=== PATIENT | female | born 1945 | race Caucasian/White ===

== ENCOUNTER 2017-07-23 13:00 | Outpatient (CLI) | payer MEDICARE, BC | END 2017-07-23 13:01 | disposition home or self-care (01) | LOC: BICMAMMO 13:00 | PROVIDERS: ATTEND Obstetrics & Gynecology | DX: Z12.31 Encounter for screening mammogram for malignant neoplasm of breast (principal) | CPT/HCPCS: 77063 ==

== ENCOUNTER 2018-03-13 16:02 | Observation (INO) | payer MEDICARE, BC ==
[2018-03-13 17:08] VITALS: BMI 29.9
[2018-03-13 17:51] LABS: #Basophils 0.1 thou/uL (0.0-0.2); #Eosinphils 0.1 thou/uL (0.0-0.7); #Lymphocytes 2.8 thou/uL (1.20-3.40); #Monocytes 0.7 thou/uL (0.11-0.59); %Basophils 0.9 % (0.0-1.0); %Eosinophils 0.8 % (0.0-10.0); %Lymphocytes 32.5 % (21.0-51.0); %Monocytes 8.5 % (0.0-10.0); %Neutrophils 57.3 % (42.0-75.0); Hemoglobin 14.6 g/dL (12.0-16.0); Mean Corpuscular HGB CONC 34.2 g/dL (32.0-36.0); Mean Corpuscular Hemoglobin 31.5 pg (27.0-31.0); Mean Corpuscular Volume 92.1 fL (78.0-98.0); Mean Platelet Volume 6.1 fL (7.4-10.4); Platelet Count 347 thou/uL (130-400); RBC Distribution Width 11.8 % (11.5-14.5); Red Blood Cell (RBC) Count 4.65 mill/uL (4.20-5.40); White Blood Cell (WBC) Count 8.7 thou/uL (4.8-10.8)
[2018-03-13 18:13] LABS: Anion Gap 15 mmol/L (10-20); BUN (Urea Nitrogen) 10 mg/dL (9.8-20.1); Calc. Creatinine Clearance 90 mL/min (70-130); Calcium 9.7 mg/dL (7.8-10.44); Carbon Dioxide 23 mmol/L (23-31); Chloride 103 mmol/L (98-107); Estimated GFR-MDRD Greater than 90; Glucose 85 mg/dL (83-110); Potassium 3.6 mmol/L (3.5-5.1); Sodium 137 mmol/L (136-145)
[2018-03-13] MEDS ORDERED: Aspirin 325 MG TAB PO PRN (18:40)
[2018-03-13] MEDS ORDERED: Ibuprofen 200 MG TAB PO PRN (18:41)
[2018-03-13] MEDS ORDERED: Loratadine 10 MG TAB PO PRN (18:42)
[2018-03-13 18:44] LABS: Free T4 (Free Thyroxine) 0.99 ng/dL (0.70-1.48); Thyroid Stimulating Hormone 0.3676 uIU/mL (0.35-4.94)
[2018-03-13] MEDS ORDERED: Clindamycin/D5W 900 MG in Premix Bag 1 BAG IVPB SCH (22:45)
--- NOTE | 2018-03-14 00:12 | CON ---
DATE OF CONSULTATION: 03/13/2018 ELECTROPHYSIOLOGY CONSULTATION DATE OF REFERRAL: 03/13/2018 REFERRING PHYSICIAN: Terence Doan MD REASON FOR CONSULTATION: Atrial fibrillation as well as sick sinus syndrome. HISTORY OF PRESENT ILLNESS: Ms. Oreilly is a very pleasant 72-year-old female with a history of hype rtension and paroxysmal atrial fibrillation, who is a patient of Dr. Doan. She has been wearing a nurse monitoring for the past few days and was found to have a recent significant pause up to 7 sec onds in duration with associated presyncope. She has not had any true syncopal episodes and she is o n low-dose beta bahman therapy for her paroxysmal atrial fibrillation. She is anticoagulated with X arelto 20 mg daily for an elevated CHADS-VASc score of 3. She is currently admitted under observatio n on the telemetry unit. She is mildly symptomatic of her atrial arrhythmia. She has had occasional palpitations and heart racing, but generally is asymptomatic. She has never been evaluated by EP, laisha donnelly on powerful antiarrhythmic therapy, and has no history of ablation. REVIEW OF SYSTEMS: Negative for heart racing, chest pain, pressure, syncope or stroke-like symptoms. Positive for occasional palpitations and near syncope/dizziness. PAST MEDICAL HISTORY: 1. Paroxysmal atrial fibrillation. 2. Near-syncope. 3. Hypertension. 4. Elevated CHADS-VASc score of 3 on the basis of female gender, advancing age, and hypertension (wi ll be 2 on her birthday in 4 days). Currently on Xarelto 20 mg daily for stroke prophylaxis. 5. Breast cancer. 6. Aortic insufficiency. 7. Hypothyroidism. ALLERGIES: PENICILLIN. HOME MEDICATIONS: Vitamin B daily, fish oil daily, vitamin D daily, Tylenol 325 mg as needed for chris n, Synthroid 100 mcg daily, multivitamin daily, Toprol-XL 50 mg daily, Xarelto 20 mg q.p.m., Advil 20 0 mg as needed, Benadryl 25 mg as needed, magnesium daily. FAMILY HISTORY: Negative for early onset coronary artery disease and sudden cardiac . SOCIAL HISTORY: She is . No children. No alcohol, no tobacco, and no illicit drug use. Mod erate caffeine and soda intake, and lives a sedentary life. PHYSICAL EXAMINATION: VITAL SIGNS: Most recent vital signs, temperature 97.9 degrees, pulse 73, blood pressure is 192/77, respirations 20, oxygen is 97% on room air. GENERAL: This is a well-appearing, well-groomed, and well-developed female. She is modera tely obese. She is in no apparent distress. She is alert and oriented. Her speech is clear. Affec t is appropriate. HEENT: She is normocephalic, atraumatic. Her sclerae are anicteric and EOMs are intact. Her oral m ucosa is moist and pink with adequate dentition. NECK: Supple without jugular venous distention. Her thyroid is nonpalpable. LUNGS: Clear to auscultation bilaterally without wheezes, crackles, or rhonchi. Respirations are ev en and unlabored with good bilateral excursion. HEART: Heart rate is regularly regular without murmur, rub, or gallop. PMI is nondisplaced. EXTREMITIES: Warm and dry to touch without clubbing, cyanosis, or edema. ABDOMEN: Obese, soft, and nontender without palpable masses; and hepatojugular reflux is negative. NEUROLOGIC: Cranial nerves II-XII are grossly intact and nonfocal. Her gait was not assessed. DATABASE: Review of cardiac tracings: monitor technician that was sent with the patient was evaluated and reveals coarse atrial fibrillation largely rate controlled with pauses up to 8 seconds in duratio n. IMPRESSION: 1. Sick sinus syndrome, symptomatic bradycardia with correlation of symptoms and near syncopal episo jaxon, 8-second pause documented on nurse monitoring. 2. Paroxysmal atrial fibrillation, on low-dose beta bahman therapy. 3. Hypertension. 4. CHADS-VASc score of 3, on Xarelto. RECOMMENDATIONS: Discussion was had with Ms. Oreilly and her family regarding treatment of sick sinu s syndrome with a pacemaker. She has correlation of symptoms with her pauses and bradycardia, and pa uses are substantial and quite concerning given they are up to 8 seconds in duration. Risks, benefit s, and alternatives of pacemaker were discussed. The risks include pain, swelling, bruising, infecti on, damage to the lung, damage to the heart, and possible need for a temporary chest tube placement. The patient voices understanding and agrees to move forward with dual-chamber pacemaker implantation in the near future. Regarding her atrial fibrillation, at this point, rate control is an appropriat e goal for now. Once her pacemaker has matured and she has recovered from her procedure, we will con product support representative antiarrhythmic therapy and possibly PVI for further arrhythmia management. All questions were answered and the patient voices understanding. We will hold Xarelto tonight and likely resume tomorr ow night after pacemaker has been placed as long as no significant bleeding or complications arise. Thank you for allowing us to participate in the care of this patient.
[2018-03-14] MEDS: Levothyroxine Sodium 100 MCG TAB PO SCH (06:15)
[2018-03-14] MEDS ORDERED: Lidocaine 1% (PF) 30 ML VIAL ONE (08:03)
[2018-03-14] MEDS ORDERED: KRILL OIL PO SCH (09:00)
[2018-03-14] MEDS ORDERED: Midazolam HCl 2 mg/2 ml Vial ONE (09:19)
[2018-03-14] MEDS ORDERED: HYDROcodone/Acetaminophen 5/325 mg Tablet PO PRN (10:10)
[2018-03-14] MEDS: Multivit, Therapeutic 1 TAB PO SCH (12:45)
[2018-03-14] MEDS: Cyanocobalamin (Vitamin B-12) 1,000 MCG TAB PO SCH (12:45)
--- NOTE | 2018-03-14 13:20 | RAD ---
UPRIGHT CHEST 1 VIEW: History A 72-year-old female for a post cardiac device placement evaluation. COMPARISON: 10/01/15. FINDINGS: Left ICD in place. No evidence for pneumothorax or pleural effusion. Atherosclerosis of the aorta w ith ectasia. Surgical clips in the right axilla. No confluent pneumonia, overt edema, or other acut e process. IMPRESSION: Left implantable cardioverter defibrillator placement without pneumothorax or pleural effusion. Mini mal cardiomegaly. Atherosclerotic ectatic changes of the aorta. POS: MONET
--- NOTE | 2018-03-14 14:47 | PRG ---
DATE OF SERVICE: 03/14/2018 ELECTROPHYSIOLOGY NOTE SUBJECTIVE: Ms. Oreilly seems to be doing well after her pacemaker implantation. OBJECTIVE: VITAL SIGNS: Blood pressure 136/65, heart rate 72, respirations 20, temperature 97.1 degrees Fahrenh eit. GENERAL: She is alert and oriented woman, in no apparent distress. NECK: Supple. Jugular veins not distended. CHEST: Coarse, no crackles. CARDIOVASCULAR: Heart sounds are regular to rate and rhythm. No murmur or gallop. Left precordial pacemaker insertion site is without reaction. ABDOMEN: Benign. Bowel sounds positive. LOWER EXTREMITIES: Without edema, clubbing or cyanosis. DATABASE: The chest x-ray shows no pneumothorax, adequately seated dual chamber pacemaker is seen. The parents were in sinus rhythm. ASSESSMENT AND PLAN: Ms. Oreilly is a pleasant 72-year-old woman with history of atrial arrhythmias. She also has significant pause for 7 seconds. She underwent a dual-chamber pacemaker implantation today by Dr. Braswell and she tolerated the procedure well, so far no issues noted and she is likely to r esume her Xarelto soon. At this point, I would consider increasing her metoprolol. If that fails to keep her out of symptomatic atrial fibrillation, consideration adding Multaq versus sotalol could be made. Also, pulmonary venous isolation is the possibility in the future after a pacemaker has matur ed. I will see her as an outpatient.
[2018-03-15] MEDS: Levothyroxine Sodium 100 MCG TAB PO SCH (04:19)
[2018-03-15] MEDS: Multivit, Therapeutic 1 TAB PO SCH (07:50)
[2018-03-15] MEDS: Cyanocobalamin (Vitamin B-12) 1,000 MCG TAB PO SCH (07:50)
[2018-03-15 08:17] VITALS: BP 152/72; TEMP 96.8
--- NOTE | 2018-03-15 08:36 | CCL ---
DATE OF PROCEDURE: 03/14/2018 INDICATION FOR PROCEDURE: A 72-year-old female with sick sinus syndrome with tachybrady. She was advised to undergo dual-chamb er pacemaker insertion. This was performed today without difficulties or complications. The full dictated note can be found in chart. She was implanted with an Azura dual chamber pacemaker from [employer]. This is an MRI compatible dev ice. There were no complications encountered. She was implanted with two screw in leads active fixa tion both in the atrium and the ventricle. The pacemaker set with the upper rate of 120 and the lowe r rate was set at 60.
--- NOTE | 2018-03-15 15:37 | DIS ---
DATE OF ADMISSION: 03/13/2018 DATE OF DISCHARGE: 03/15/2018 DISCHARGE DIAGNOSIS: Sick sinus syndrome. PROCEDURE: Pacemaker. HOSPITAL COURSE: Ms. Oreilly was admitted from the office due to significant pauses and tachycardia present. She underwent successful pacemaker implantation on 03/14/2018. She was on anticoagulation therapy. We decided to keep her one more night due to her stay at home by herself and reinstituting anticoagulation treatment. She did well during her hospitalization. No pneumothorax is present. DISCHARGE MEDICATIONS: Aspirin 81 q.a.m., metoprolol 50 mg b.i.d., multivitamin, Krill oil, loratadi ne, levothyroxine as previously prescribed, Xarelto 20 mg daily. CONDITION ON DISCHARGE: Stable. FOLLOWUP: With Dr. Francine Stone in 1-2 weeks.
== END 2018-03-15 10:32 | disposition home or self-care (01) ==
LOC: 2SW 16:02
PROVIDERS: ADMIT Internal Medicine Cardiovascular Disease; ATTEND Internal Medicine Cardiovascular Disease
PROC: 0JH608Z Insertion of Defibrillator Generator into Chest Subcutaneous Tissue and Fascia, Open Approach (ICD-10-PCS; principal; 2018-03-14)
PROC: 02H63KZ Insertion of Defibrillator Lead into Right Atrium, Percutaneous Approach (ICD-10-PCS; 2018-03-14)
PROC: 02HK3KZ Insertion of Defibrillator Lead into Right Ventricle, Percutaneous Approach (ICD-10-PCS; 2018-03-14)
DX: I49.5 Sick sinus syndrome (principal); I48.0 Paroxysmal atrial fibrillation; I10 Essential (primary) hypertension; E03.9 Hypothyroidism, unspecified; Z88.0 Allergy status to penicillin; Z79.02 Long term (current) use of antithrombotics/antiplatelets; Z79.899 Other long term (current) drug therapy
CPT/HCPCS: 33249; 71045; 80048; 84439; 84443; 85025; 93005; 93798; C1785; C1898 ×2; G0378; G0379; 36415; 93010; 99152; 99153; A4216; J1644; J1956; J2001; J2250; J3370; J3490

== ENCOUNTER 2019-03-19 10:46 | Outpatient (CLI) | payer MEDICARE, BC ==
[~2019-03-19 10:46] MED LIST: Iopamidol 370 76% 100 ML VIAL ONE
--- NOTE | 2019-03-19 14:31 | CT ---
CT ABDOMEN AND PELVIS WITH AND WITHOUT IV CONTRAST: HISTORY: Gross hematuria COMPARISON: None FINDINGS: The lung bases are unremarkable. The liver, spleen, adrenal glands are normal. No calcific gallstones are seen. There is a 5 mm low-density mass in the anterior body of the pancreas and a 8mm low-density mass in the distal body of the pancreas posteriorly. A 9 mm low-density lesion is seen in the posterior aspect of the neck of the pancreas. There is a left hip arthroplasties resulting in artifact which reduces the sensitivity of the exam an d evaluation of the pelvic structures. No calculi are seen in the kidneys right ureter and visualized portions of the left ureter and urinary bladder. No hydroureteronephrosis is seen. Postcon trast images demonstrate no evidence of renal mass. There is normal contrast excretion into the ureters and urinary bladder. No free air, free fluid or lymphadenopathy seen in the abdomen or pelvis. There are vascular calcific ations without evidence of aneurysmal dilatation of the abdominal aorta. The small bowel loops are not abnormally dilated. A normal-appearing appendix is present. There is colonic diverticulosis witho ut definite diverticulitis. Degenerative changes are present in the spine. There is a fat-containing umbilical hernia. IMPRESSION: 1. No CT evidence of urinary tract calculi/obstruction or renal mass. 2. Probable small pancreatic cystic masses. Evaluation with the endoscopic ultrasound would be helpfu l. 3. Colonic diverticulosis.
== END 2019-03-19 10:47 | disposition home or self-care (01) ==
LOC: BICCT 10:46
PROVIDERS: ATTEND Urology
DX: R31.0 Gross hematuria (principal); K57.30 Diverticulosis of large intestine without perforation or abscess without bleeding
CPT/HCPCS: 74178; 82565; Q9967

== ENCOUNTER 2019-07-06 09:40 | Inpatient (IN) | payer MEDICARE, BC ==
[~2019-07-06 09:40] MED LIST changes: -Iopamidol 370 76% 100 ML VIAL ONE; +Lidocaine 1% PF 5 ML VIAL ONE; +PROPOFOL 200 MG/20 ML VIAL ONE
[2019-07-06 11:03] LABS: ALT (SGPT) 15 U/L (8-55); AST (SGOT) 18 U/L (5-34); Albumin 3.5 g/dL (3.4-4.8); Alkaline Phosphatase 33 U/L (40-110); Anion Gap 13 mmol/L (10-20); BUN (Urea Nitrogen) 31 mg/dL (9.8-20.1); Bilirubin, Total 0.3 mg/dL (0.2-1.2); Calc. Creatinine Clearance 0 mL/min (70-130); Carbon Dioxide 20 mmol/L (23-31); Chloride 104 mmol/L (98-107); Estimated GFR-MDRD 79; Globulin 1.6 g/dL (2.4-3.5); Glucose 102 mg/dL (83-110); Potassium 3.8 mmol/L (3.5-5.1); Protein, Total 5.1 g/dL (6.0-8.3); Sodium 133 mmol/L (136-145)
[2019-07-06 11:23] LABS: Band 1 % (5-11); Eosinophils 1 % (0-10); Hemoglobin 4.9 g/dL (12.0-16.0); Hypochromia SLIGHT = 6-15 cells (100X) (0-5/hpf); Lymphocytes 27 % (21-51); MDiff Complete? YES; Mean Corpuscular HGB CONC 36.1 g/dL (32.0-36.0); Mean Corpuscular Hemoglobin 32.7 pg (27.0-31.0); Mean Corpuscular Volume 90.7 fL (78.0-98.0); Mean Platelet Volume 6.7 fL (7.4-10.4); Microcytosis MODERATE=15-30 cells (100X) (0-5/hpf); Monocytes 4 % (0-10); Neutrophil 67 % (42-75); Nucleated RBC 1 % (0); Ovalocytes SLIGHT = 2-5 cells (100X) (0-1/hpf); Platelet Count 291 thou/uL (130-400); Platelet Morphology Comment Appears Adequate; Polychromasia MODERATE = 3-4 cells (100X) (0-2/hpf); RBC Distribution Width 13.3 % (11.5-14.5); Red Blood Cell (RBC) Count 1.51 mill/uL (4.20-5.40); White Blood Cell (WBC) Count 11.9 thou/uL (4.8-10.8)
[2019-07-06] MEDS ORDERED: Pantoprazole 40 MG VIAL ONE (11:31)
[2019-07-06 11:42] LABS: INR-International Normal Ratio 2.1; PTT 31.4 SEC (22.9-36.1); Prothrombin Time 23.4 SEC (12.0-14.7)
[2019-07-06] MEDS ORDERED: Pantoprazole 80 MG, Admixture Fee 1 EACH in Sodium Chloride 0.9% 100 ML IVPB SCH (11:45)
[2019-07-06] MEDS ORDERED: HUM PROTHROMBIN CPLX IV SCH (12:15)
[2019-07-06] MEDS ORDERED: ADMIXTURE FEE IV SCH (12:15)
[2019-07-06] MEDS ORDERED: Phytonadione 10 MG/ML AMP SLOW IVP SCH (12:15)
[2019-07-06] MEDS ORDERED: [UNRECOGNIZED DRUG - OTHER] IV SCH (12:15)
[2019-07-06 13:03] LABS: Bilirubin Negative (Negative); Blood, Urine Negative (Negative); Clarity Clear (Clear); Glucose, Urine (Dipstick) Normal (Negative); Leukocyte Negative Leu/uL (Negative); Nitrite Negative (Negative); Protein, Urine (Dipstick) Negative (Neg-Trace); Urobilinogen Normal mg/dL (Less than 2)
--- NOTE | 2019-07-06 14:56 | HP ---
PRIMARY CARE PHYSICIAN: Dr. Romero. REASON FOR ADMISSION: Dizziness, weakness, and GI bleed. HISTORY OF PRESENT ILLNESS: A 74-year-old female with history of atrial fibrillation, hypothyroidism, chronic pain, hypertension, carcinoma of breast, and sick sinus syndrome, came to the hospital with weakness and dizziness. The patient started having vague symptoms 2 to 3 days back and it was getting worse. She has also started noticing dark stools and she was brought to the hospital. She was also looking pale and feeling nauseated. No vomiting. No diarrhea. No chest pain or palpitation. No fever or chills. No skin rash. No sick contacts. In the ER, she was found to have hemoglobin of 4.9 and is getting transfused and she is planned to have EGD. PAST MEDICAL HISTORY: Positive for atrial fibrillation, hypothyroidism, degenerative joint disease, hypertension, low back pain, CA of breast, sick sinus syndrome. PAST SURGICAL HISTORY: Lumpectomy, carcinoma of breast, left hip surgery, pacemaker placement, cataract surgery. HOME MEDICATIONS: Include; 1. Aspirin 81 mg daily. 2. Vitamin D3, 2000 p.o. daily. 3. Vitamin B12. 4. Krill oil 350 p.o. daily. 5. Levothyroxine 100 mcg p.o. daily. 6. Loratadine. 7. Metoprolol 50 mg p.o. daily. 8. Xarelto 20 mg p.o. at bedtime. She also takes Multaq, she does not know the dose. ALLERGIES: PENICILLIN, , AND DARVOCET. CODE STATUS: Full. SURROGATE DECISION MAKER: Would be Mayra Cruz, who is her sister. She does not have a medical power of litigation attorney. SOCIAL HISTORY: No smoking, alcohol, or illicit drug abuse. FAMILY HISTORY: Positive for diabetes in mom, sister, and brother. REVIEW OF SYSTEMS: CONSTITUTIONAL: Negative for weight loss or gain, ability to conduct usual activities. SKIN: Negative for rash, itching. EYES: Negative for double vision, pain. ENT/MOUTH: Negative for nose bleeding, neck stiffness, pain, tenderness. CARDIOVASCULAR: Negative for palpitations, dyspnea on exertion, orthopnea. RESPIRATORY: Negative for shortness of breath, wheezing, cough, hemoptysis, fever or night sweats. GASTROINTESTINAL: Negative for poor appetite, abdominal pain, heartburn, nausea, vomiting, constipation, or diarrhea. GENITOURINARY: Negative for urgency, frequency, dysuria, nocturia. MUSCULOSKELETAL: Negative for pain, swelling. NEUROLOGIC/PSYCHIATRIC: Negative for anxiety, depression. ALLERGY/IMMUNOLOGIC: Negative for skin rash, bleeding tendency. PHYSICAL EXAMINATION: GENERAL: This is an obese female, in no apparent distress. The patient looks pale. VITAL SIGNS: Temperature 97.9, pulse 64, respiratory rate 17, blood pressure 113/40. HEENT: Atraumatic and normocephalic. Oral mucosa moist. NECK: Supple. CVS: S1 and S2 heard. Rate and rhythm are regular. RESPIRATORY: Clear. GASTROINTESTINAL: Abdomen is soft. MUSCULOSKELETAL: No tenderness. No edema. DERMATOLOGIC: No skin rash. NEUROLOGIC: Alert and awake. PSYCHIATRIC: Mood and affect normal. LABORATORY DATA: Hemoglobin 4.9, WBC 11.9, platelets 291. INR is 2.1. Potassium 3.8, BUN is , creatinine 0.7. UA is negative. ASSESSMENT AND PLAN: 1. Severe anemia secondary to GI bleed. Plan is to transfuse her and also use Kcentra to regularize coagulopathy. 2. GI bleed. We will consult GI and we will start on Protonix drip and we will transfuse and follow up with GI recommendation. 3. Coagulopathy. The patient was given Kcentra. We will hold aspirin and Xarelto until cleared by GI. 4. History of hypertension. We will monitor blood pressure. 5. History of atrial fibrillation. We will continue Multaq and metoprolol. We will monitor the heart rate. 6. History of hypothyroidism. Continue her home dose of medicines and monitor. 7. Sick sinus syndrome. We will monitor her heart rate. PLAN: 1. Plan is to admit her to inpatient admission and monitor in IMCU for now. Follow up with GI recommendation. Keep her n.p.o. Start on IV fluids and Protonix drip. The patient was already given Kcentra and 2 units of blood and will be taken to EGD pretty soon. Appreciate help from GI. 2. Code status is full. I had discussion with the patient and she is full code. 3. Surrogate decision maker will be her sister. No medical power of litigation attorney available. Her sister's name is Mayra Cruz. 4. Selected home medications. We will hold anticoagulants. 5. GI/DVT prophylaxis, on Protonix drip and SCDs. We will avoid heparin and anticoagulants due to GI bleed. 6. P.r.n. order set. 7. The patient will be admitted to the IM and will be monitored closely. Job ID: [id number]
--- NOTE | 2019-07-06 14:57 | CON ---
DATE OF CONSULTATION: 07/06/2019 REASON FOR CONSULTATION: Melena, profound anemia. CONSULTING PROVIDER: Dr. Vo. HISTORY OF PRESENT ILLNESS: The patient is a 74-year-old female with past medical history of atrial fibrillation, on chronic anticoagulation with Xarelto, breast cancer, status post treatment, hypothyroidism, acid reflux, hypertension, and obstructive sleep apnea, presenting with complaints of weakness and melena. She states that she was in her usual state of health until approximately 1 week ago when she began having these darker black colored stools, having approximately 2 to 4 solid to semi-solid bowel movements per day that were not easy to clean off. This continued throughout the course of the week and at the latter end of the week, she began to feel increasingly weak and was associated with increased skin pallor as well as dyspnea on exertion and dizziness with movement. With this worsening weakness this morning, it prompted her to seek healthcare assistance and called EMS who then transferred to [facility]. While in the hospital, she was noted to have a significant anemia when compared to her baseline and is currently in the process of being admitted for further evaluation of bleeding. She also endorses increased nausea without vomiting, eructation, subjective fevers, chills, and decreased appetite over the last week; however, she currently denies vomiting, hematemesis, hematochezia, dysphagia, odynophagia, or weight loss. REVIEW OF SYSTEMS: A 10-category review of systems was obtained with all responses negative except for the pertinent positives as listed in HPI. PAST MEDICAL HISTORY: As per HPI. PAST SURGICAL HISTORY: Partial mastectomy, broken femur repair, left hip replacement, and pacemaker insertion. FAMILY HISTORY: States that her sister was diagnosed with chronic liver disease/liver cancer. Otherwise, she denies any additional GI malignancies. OUTPATIENT MEDICATIONS: Include; 1. Metoprolol 25 mg b.i.d. 2. Aspirin 81 mg daily. 3. Multivitamin daily. 4. Vitamin B12 daily. 5. Vitamin D daily. 6. Synthroid 100 mcg daily. 7. Xarelto 20 mg daily. ALLERGIES: PENICILLIN AND PROPOXYPHENE NAPSYLATE. PHYSICAL EXAMINATION: VITAL SIGNS: Temperature 98.4, pulse 79, blood pressure 105/50, respiratory rate 17, saturating 98% on 2 L nasal cannula. GENERAL: The patient was lying in bed, in no acute distress. Alert and oriented x4. HEENT: Neck is supple. No JVD or scleral icterus noted. Normocephalic and atraumatic. CARDIOVASCULAR: Regular rate and rhythm with no discernible murmurs, gallops, or rubs. RESPIRATORY: Clear to auscultation bilaterally with no discernible wheezes or rales. ABDOMEN: Normoactive bowel sounds. Soft, nontender, nondistended. EXTREMITIES: No cyanosis, clubbing, or edema. LABORATORY DATA: CBC with a white blood cell count of 11.9, hemoglobin 4.9, hematocrit 13.7, platelets 291. Chemistry with a sodium of 133, potassium 3.8, chloride 104, CO2 of 20, BUN 31, creatinine 0.72, glucose 102. AST 18, ALT 15, alkaline phosphatase 33, total bilirubin 0.3. IMAGING DATA: No current GI imaging is available for review. ASSESSMENT AND PLAN: The patient is a 74-year-old female with past medical history of breast cancer, status post treatment, hypothyroidism, hypertension, gastroesophageal reflux disease, and atrial fibrillation, on chronic anticoagulation, presenting with melena consistent with an upper gastrointestinal bleed. Melena/upper GI bleeding: The patient is presenting with fairly acute onset of darker/black-colored stools that have been progressively worsening over the last week, having approximately 2 to 4 solid/semi-solid bowel movements per day. On admission to the ER, she was also noted to have a profound anemia with an elevated BUN-creatinine ratio, again consistent with an upper GI bleed. At this time, she is on chronic anticoagulation with Xarelto for her atrial fibrillation, which could further exacerbate any sort of GI bleeding. Differential at this time could include esophagitis, gastritis, duodenitis, peptic ulcer disease, arteriovenous malformation, Dieulafoy lesion and/or GI neoplasm. RECOMMENDATIONS: 1. We would continue to trend her H and H and transfuse as necessary to maintain an H and H of 7/21. 2. Continue to monitor clinically for signs of active GI bleeding. 3. We will continue with PPI drip as you are doing in light of upper GI bleed. 4. We will continue n.p.o. status in preparation for procedure later today. 5. We will proceed with EGD for intraluminal evaluation later today once the patient has received blood product. We will continue to follow. Please call with any questions. Job ID: [id number]
[2019-07-06] MEDS ORDERED: Ondansetron PF 4 MG/2 ML Vial IVP PRN (16:11)
[2019-07-06] MEDS ORDERED: HYDROcodone/Acetaminophen 5/325 mg Tablet PO PRN (16:11)
[2019-07-06] MEDS ORDERED: Senokot S 8.6-50 MG TAB PO PRN (16:11)
[2019-07-06] MEDS ORDERED: Loperamide HCl 2 MG CAP PO PRN ×2 (16:11)
[2019-07-06] MEDS ORDERED: Guaifenesin DM 100-10/5 ML UDCUP PO PRN (16:11)
[2019-07-06] MEDS ORDERED: Pantoprazole 80 MG in Sodium Chloride 0.9% 100 ML IVP SCH (16:11)
[2019-07-06] MEDS ORDERED: Ondansetron HCl/PF 4 MG/2 ML Vial IVP PRN (16:14)
[2019-07-06] MEDS ORDERED: Promethazine HCl 25 MG/ML VIAL IM PRN (16:14)
[2019-07-06] MEDS ORDERED: Promethazine HCl 25 MG/ML VIAL SLOW IVP PRN (16:14)
--- NOTE | 2019-07-06 16:39 | OP ---
DATE OF PROCEDURE: 07/06/2019 PROCEDURE PERFORMED: Esophagogastroduodenoscopy (diagnostic). INDICATION FOR PROCEDURE: Anemia, melena with probable upper GI bleed. DESCRIPTION OF PROCEDURE: After the risks and benefits of the procedure were explained to the patient including risks of bleeding, infection, perforation, reactions to anesthesia, aspiration and/or pain, informed consent was obtained. The patient was then taken to the endoscopy suite, and placed in the left lateral decubitus position, followed by administration of propofol via Anesthesia support. Once adequate sedation was achieved, the standard gastroscope was introduced into the mouth with intubation of the esophagus, stomach, and the proximal small intestines with the findings listed below. The patient tolerated the procedure well with no immediate perioperative complications. Upon conclusion of the procedure, all equipment was removed from the patient and she was transferred to PACU in satisfactory condition. FINDINGS: Esophagus: Normal-appearing mucosa was seen in the proximal, mid, and distal esophagus. There were no evidence of erosions, ulcerations, mass, lesions, or active/recent bleeding. Stomach: Normal-appearing mucosa was seen in the gastric cardia, fundus, body, greater curvature, antrum, and incisura. There were no evidence of erosions, ulcerations, mass, lesions, or active/recent bleeding. Duodenum: Normal-appearing mucosa was seen within the duodenal bulb. A large duodenal diverticulum was seen within the duodenal sweep, but upon careful inspection of the duodenal diverticulum, there was no evidence of erosions, ulcerations, or bleeding within the lesion. Otherwise, normal-appearing mucosa was seen within the diverticulum and within the second portion of the duodenum. There were no evidence of erosions, ulcerations, mass, lesions, or active/recent bleeding. IMPRESSION: 1. Large duodenal diverticulum with normal mucosa within the diverticular sac. 2. Otherwise, normal upper endoscopy. 3. No etiology for the patient's anemia was seen during this examination. RECOMMENDATIONS: 1. We would continue to trend the patient's H and H and transfuse as necessary to maintain an H and H of 7/21. 2. Continue to monitor clinically for signs of active GI bleeding. 3. We will transfer the patient to an intermediate care bed for further monitoring. 4. We would avoid any anticoagulation and/or NSAIDs. 5. We will prep the patient for colonoscopy tomorrow for intraluminal evaluation of the colon. 6. If the colonoscopy is negative, I would then consider a tagged red cell scan for further localization of the bleeding. 7. Given lack of findings on the upper endoscopy, pantoprazole drip is not necessarily indicated and could be transferred to pantoprazole 40 mg IV daily. We will continue to follow. Please call with any questions. Job ID: [id number]
[2019-07-06 17:18] VITALS: BMI 30.5
[2019-07-06 18:38] LABS: Hemoglobin 7.6 g/dL (12.0-16.0)
[2019-07-06] MEDS: Sodium Chloride 0.9% 1,000 ML IV SCH (22:00)
[2019-07-06] MEDS ORDERED: GoLYTELY 4,000 ml Bottle PO SCH (22:00)
[2019-07-07 06:03] LABS: Hemoglobin 6.9 g/dL (12.0-16.0)
[2019-07-07 06:04] LABS: #Basophils 0.1 thou/uL (0.0-0.2); #Eosinphils 0.1 thou/uL (0.0-0.7); #Lymphocytes 2.5 thou/uL (1.20-3.40); #Monocytes 1.3 thou/uL (0.11-0.59); #Neutrophils 8.1 thou/uL (1.40-6.50); %Basophils 0.5 % (0.0-1.0); %Eosinophils 0.7 % (0.0-10.0); %Lymphocytes 20.5 % (21.0-51.0); %Monocytes 11.2 % (0.0-10.0); Mean Corpuscular HGB CONC 34.5 g/dL (32.0-36.0); Mean Corpuscular Hemoglobin 28.7 pg (27.0-31.0); Mean Corpuscular Volume 83.2 fL (78.0-98.0); Mean Platelet Volume 7.9 fL (7.4-10.4); Platelet Count 235 thou/uL (130-400); RBC Distribution Width 24.3 % (11.5-14.5)
[2019-07-07 06:29] LABS: ALT (SGPT) 11 U/L (8-55); AST (SGOT) 20 U/L (5-34); Albumin 3.1 g/dL (3.4-4.8); Alkaline Phosphatase 29 U/L (40-110); Anion Gap 10 mmol/L (10-20); BUN (Urea Nitrogen) 19 mg/dL (9.8-20.1); Bilirubin, Total 0.5 mg/dL (0.2-1.2); Calc. Creatinine Clearance 88 mL/min (70-130); Calcium 7.2 mg/dL (7.8-10.44); Carbon Dioxide 22 mmol/L (23-31); Chloride 108 mmol/L (98-107); Estimated GFR-MDRD Greater than 90; Globulin 1.4 g/dL (2.4-3.5); Glucose 98 mg/dL (83-110); Potassium 3.6 mmol/L (3.5-5.1); Protein, Total 4.5 g/dL (6.0-8.3); Sodium 136 mmol/L (136-145)
[2019-07-07] MEDS ORDERED: FLU VACC TS2019-20(65YR UP)/PF 180 MCG/0.5 ML SYRINGE IM ONE (09:00)
[2019-07-07] MEDS ORDERED: PROPOFOL 200 MG/20 ML VIAL ONE (09:37)
--- NOTE | 2019-07-07 13:22 | PDOC.HOSPP ---
- Subjective Encounter Date: 07/07/19 Encounter Time: 11:00 Subjective: finished most of her prep for colonoscopy still has some jhonatan bleeding per rectum no abd pain or nausea - Objective Vital Signs & Weight: Vital Signs (12 hours) Temp Pulse Ox 07/07/19 07:33 99 07/07/19 07:26 97.4 F L 07/07/19 04:00 97.8 F Weight Weight 161 lb 13.109 oz Most Recent Monitor Data Heart Rate from ECG 75 NIBP 147/54 NIBP BP-Mean 85 Respiration from ECG 16 SpO2 100 Result Diagrams: 07/07/19 05:11 07/07/19 05:11 Hospitalist ROS - Medication Medications: Active Medications Generic Name Dose Route Start Last Admin Trade Name Freq PRN Reason Stop Dose Admin Sodium Chloride 1,000 mls @ 100 mls/hr 07/06/19 16:11 07/06/19 22:00 Normal Saline 0.9% IV 1,000 mls .Q10H [place] Administration - Exam General Appearance: awake alert Eye: PERRL, anicteric sclera ENT: no oropharyngeal lesions, moist mucosa Neck: supple, no JVD Heart: no murmur, no gallops Respiratory: no wheezes, no rales Gastrointestinal: soft, non-tender, non-distended, normal bowel sounds Extremities: no cyanosis, no edema Neurological: cranial nerve grossly intact, no focal deficits Psychiatric: normal affect, A&O x 3 Hosp A/P (1) GI bleed Code(s): K92.2 - GASTROINTESTINAL HEMORRHAGE, UNSPECIFIED Status: Acute (2) Acute blood loss anemia Code(s): D62 - ACUTE POSTHEMORRHAGIC ANEMIA Status: Acute (3) Sick sinus syndrome Code(s): I49.5 - SICK SINUS SYNDROME Status: Chronic (4) HLD (hyperlipidemia) Code(s): E78.5 - HYPERLIPIDEMIA, UNSPECIFIED Status: Chronic (5) HTN (hypertension) Code(s): I10 - ESSENTIAL (PRIMARY) HYPERTENSION Status: Chronic Qualifiers: Hypertension type: essential hypertension Qualified Code(s): I10 - Essential (primary) hypertension (6) Hypothyroidism Code(s): E03.9 - HYPOTHYROIDISM, UNSPECIFIED Status: Chronic Qualifiers: Hypothyroidism type: unspecified Qualified Code(s): E03.9 - Hypothyroidism , unspecified (7) Obesity (BMI 30.0-34.9) Code(s): E66.9 - OBESITY, UNSPECIFIED Status: Chronic (8) Paroxysmal a-fib Code(s): I48.0 - PAROXYSMAL ATRIAL FIBRILLATION Status: Chronic - Plan change protonix drip to iv/po for colonoscopy today egd did not show active bleeding site/etiology continue toprol xl, synthroid, gentle iv hydration to ambulate as tolerated H/H 02/05, transfuse 2 u prbc will need central line, her right EJ is infiltrated.
[2019-07-07] MEDS: Sodium Chloride 0.9% 1,000 ML IV SCH (14:32)
[2019-07-07] MEDS: Levothyroxine Sodium 100 MCG TAB PO SCH (14:32)
--- NOTE | 2019-07-07 16:28 | OP ---
DATE OF PROCEDURE: 07/07/2019 PROCEDURE PERFORMED: Colonoscopy (diagnostic). INDICATIONS FOR PROCEDURE: Symptomatic anemia, melena, hematochezia. DESCRIPTION OF PROCEDURE: After the risks and benefits of the procedure were explained to the patient including risks of bleeding, infection, perforation, reactions to anesthesia, aspiration and/or pain, informed consent was obtained. The patient was then taken to the endoscopy suite, where she was placed in the left lateral decubitus position, followed by introduction of propofol via Anesthesia support. Once adequate sedation was achieved, a digital rectal examination was performed followed by introduction of the standard colonoscope, which was then advanced to the terminal ileum with some difficulty, requiring the placement of manual abdominal pressure to facilitate passage of the scope. Initially, the quality of the prep was poor with a large amount of retained black stool seen throughout the entire colon, but with aggressive irrigation and suctioning, I was able to achieve a fair to good prep. The patient tolerated the procedure well with no immediate perioperative complications. Upon conclusion of the procedure, the patient was transferred to PACU in satisfactory condition. FINDINGS: Digital rectal exam: Normal-appearing mucosa was seen on external examination. Colon findings: Normal-appearing mucosa was seen within the terminal ileum with a very little old/black blood seen within the terminal ileum itself. However, a large amount of retained black or black/red colored stool was seen throughout the entire colon and limited visualization significantly initially; however, with aggressive irrigation and suctioning, adequate views were able to be achieved for the evaluation of possible GI bleeding (inadequate for screening purposes). Normal-appearing mucosa was seen at the ileocecal valve and appendiceal orifice. Normal-appearing mucosa was also seen within the cecum, ascending colon, transverse colon, and descending colon. Within the sigmoid colon, there was a moderate amount of scattered small and large diverticula. Meticulous washing of each diverticula was performed for possible diverticular bleeding, but there was no evidence of active or recent bleeding from any of these regions. Normal-appearing mucosa was then seen within the rectum with small internal hemorrhoids seen on rectal retroflexion. IMPRESSION: 1. Large amount of retained black/red stool seen throughout the entire colon, but not in the terminal ileum, making a colonic bleeding source more likely; however, the etiology of her bleed was not seen on examination today. 2. Moderate sigmoid diverticulosis. 3. Small internal hemorrhoids. RECOMMENDATIONS: 1. We would continue to trend her hemoglobin and hematocrit and transfuse as necessary to maintain a hemoglobin and hematocrit of 7/21. 2. Continue to monitor clinically for signs of active GI bleeding. 3. If the patient exhibits a continued drop in her hemoglobin and hematocrit or has clinical signs of GI bleeding, we would recommend a tagged red cell scan for further localization of the bleeding source. 4. We will continue to hold anticoagulation in light of recent GI bleed and overt obscure GI bleeding. 5. We will place the patient on a clear liquid diet for now. 6. We will transfer the patient from a PPI drip to 40 IV daily given the lack of an upper gastrointestinal bleeding source. We will continue to follow. Please call with any questions. Job ID: [id number]
[2019-07-08] MEDS: Sodium Chloride 0.9% 1,000 ML IV SCH ×3 (02:03→22:15)
[2019-07-08 05:19] LABS: #Eosinphils 0.3 thou/uL (0.0-0.7); #Lymphocytes 2.4 thou/uL (1.20-3.40); #Monocytes 1.3 thou/uL (0.11-0.59); #Neutrophils 6.6 thou/uL (1.40-6.50); %Basophils 0.3 % (0.0-1.0); %Eosinophils 2.8 % (0.0-10.0); %Lymphocytes 22.7 % (21.0-51.0); %Monocytes 12.2 % (0.0-10.0); Hemoglobin 8.9 g/dL (12.0-16.0); Mean Corpuscular HGB CONC 33.6 g/dL (32.0-36.0); Mean Corpuscular Hemoglobin 28.5 pg (27.0-31.0); Mean Corpuscular Volume 84.8 fL (78.0-98.0); Mean Platelet Volume 7.4 fL (7.4-10.4); Platelet Count 232 thou/uL (130-400); RBC Distribution Width 21.5 % (11.5-14.5); Red Blood Cell (RBC) Count 3.12 mill/uL (4.20-5.40); White Blood Cell (WBC) Count 10.6 thou/uL (4.8-10.8)
[2019-07-08 05:38] LABS: Anion Gap 10 mmol/L (10-20); BUN (Urea Nitrogen) 6 mg/dL (9.8-20.1); Calc. Creatinine Clearance 99 mL/min (70-130); Calcium 7.4 mg/dL (7.8-10.44); Carbon Dioxide 20 mmol/L (23-31); Chloride 113 mmol/L (98-107); Estimated GFR-MDRD Greater than 90; Glucose 90 mg/dL (83-110); Potassium 3.4 mmol/L (3.5-5.1); Sodium 140 mmol/L (136-145)
[2019-07-08] MEDS: Pantoprazole 40 MG VIAL IVP SCH (09:59)
[2019-07-08] MEDS: Levothyroxine Sodium 100 MCG TAB PO SCH (09:59)
--- NOTE | 2019-07-08 13:35 | PDOC.HOSPP ---
- Subjective Encounter Date: 07/08/19 Encounter Time: 11:45 Subjective: tolerating oral liq diet, no abd pain feels better no further rectal bleeding per patient - Objective Vital Signs & Weight: Vital Signs (12 hours) Temp Pulse Ox 07/08/19 08:00 99 07/08/19 06:57 98.6 F 07/08/19 03:33 98.7 F 07/08/19 02:00 98.4 F Weight Weight 173 lb 3 oz Most Recent Monitor Data Heart Rate from ECG 72 NIBP 156/63 NIBP BP-Mean 94 Respiration from ECG 19 SpO2 100 I&O: 07/07/19 07/08/19 07/09/19 06:59 06:59 06:59 Intake Total 3079 Output Total 3950 Balance -871 Result Diagrams: 07/08/19 05:01 07/08/19 05:01 Hospitalist ROS - Medication Medications: Active Medications Generic Name Dose Route Start Last Admin Trade Name Freq PRN Reason Stop Dose Admin Sodium Chloride 1,000 mls @ 100 mls/hr 07/06/19 16:11 07/08/19 07:29 Normal Saline 0.9% IV Not Given .Q10H [place] Levothyroxine Sodium 100 mcg 07/07/19 09:00 07/08/19 09:59 Synthroid PO 100 mcg DAILY [place] Administration Metoprolol Succinate 50 mg 07/07/19 09:00 07/08/19 09:59 Toprol Xl PO 50 mg DAILY [place] Administration Pantoprazole Sodium 40 mg 07/08/19 09:00 07/08/19 09:59 Protonix IVP 40 mg DAILY [place] Administration - Exam General Appearance: awake alert Eye: PERRL, anicteric sclera ENT: no oropharyngeal lesions, moist mucosa Neck: supple, no JVD Heart: RRR, no murmur Respiratory: no wheezes, no rales Gastrointestinal: soft, non-tender, non-distended, normal bowel sounds Extremities: no cyanosis, no edema Neurological: cranial nerve grossly intact, no focal deficits Psychiatric: normal affect, A&O x 3 Hosp A/P (1) GI bleed Code(s): K92.2 - GASTROINTESTINAL HEMORRHAGE, UNSPECIFIED Status: Acute (2) Acute blood loss anemia Code(s): D62 - ACUTE POSTHEMORRHAGIC ANEMIA Status: Acute (3) Sick sinus syndrome Code(s): I49.5 - SICK SINUS SYNDROME Status: Chronic (4) HLD (hyperlipidemia) Code(s): E78.5 - HYPERLIPIDEMIA, UNSPECIFIED Status: Chronic (5) HTN (hypertension) Code(s): I10 - ESSENTIAL (PRIMARY) HYPERTENSION Status: Chronic Qualifiers: Hypertension type: essential hypertension Qualified Code(s): I10 - Essential (primary) hypertension (6) Hypothyroidism Code(s): E03.9 - HYPOTHYROIDISM, UNSPECIFIED Status: Chronic Qualifiers: Hypothyroidism type: unspecified Qualified Code(s): E03.9 - Hypothyroidism , unspecified (7) Obesity (BMI 30.0-34.9) Code(s): E66.9 - OBESITY, UNSPECIFIED Status: Chronic (8) Paroxysmal a-fib Code(s): I48.0 - PAROXYSMAL ATRIAL FIBRILLATION Status: Chronic - Plan colonoscopy revealed likely bleeding source is colon with no active source found. egd did not show active bleeding site/etiology continue toprol xl, synthroid, gentle iv hydration, protonix iv to ambulate as tolerated has recieved a total of 4 u prbc's this admission, Hb is stable now around 8g may advance diet per GI adv tx to med floor, hemostable
--- NOTE | 2019-07-08 18:39 | PRG ---
DATE OF SERVICE: 07/08/2019 REASON FOR CONSULTATION: Melena, GI bleeding. SUBJECTIVE: The patient did well overnight with no acute events or problems. She did not have any bowel movements today nor any repeat episodes of melena. She was given 2 units of blood yesterday and has been feeling much better since the infusion of blood product. Otherwise, she denies any nausea, vomiting, fevers, chills, abdominal pain, hematemesis, melena, or hematochezia. OBJECTIVE: VITAL SIGNS: Temperature 98, pulse 68, blood pressure 166/66, respiratory rate 14, saturating 96% on room air. GENERAL: The patient is lying in bed, in no acute distress. Alert and oriented x4. CARDIOVASCULAR: Regular rate and rhythm. RESPIRATORY: Clear to auscultation bilaterally. ABDOMEN: Normoactive bowel sounds. Soft, nontender, nondistended. EXTREMITIES: No cyanosis, clubbing, or edema. LABORATORY DATA: CBC with a white blood cell count of 10.6, hemoglobin 8.9, hematocrit 26.5, platelets 232. Chemistry with a sodium of 140, potassium 3.4, chloride 113, CO2 of 20, BUN 6, creatinine 0.6, glucose 90. IMAGING DATA: The patient underwent colonoscopy on July 07, 2019, which showed a large amount of retained dark black/reddish colored blood seen throughout the entire colon. Aggressive irrigation and suctioning were employed with adequate visualization of the colonic mucosa achieved, but no etiology for the patient's bleeding was seen during that procedure. ASSESSMENT AND PLAN: The patient is a 74-year-old female with past medical history of breast cancer, status post treatment, hypothyroidism, hypertension, gastroesophageal reflux disease, and atrial fibrillation, on chronic anticoagulation, initially presenting with melena consistent with GI bleeding. Melena/GI bleeding. The patient initially presented with fairly acute onset of darker/black-colored stools with semi-solid consistency concerning for melena. On admission to the ER, she was noted to have a profound anemia as well as an elevated BUN to creatinine ratio concerning for an upper GI bleed. However, she underwent EGD on July 06, 2019, which showed a normal upper endoscopy and no etiology of bleeding seen at that time. She subsequently underwent colonoscopy on July 07, 2019, which showed a large amount of retained dark black/reddish tinged blood seen throughout the entire colon, but now within the terminal ileum. Despite aggressive irrigation and suctioning, a bleeding source was not seen during that examination. Since that time, she has not had any further bowel movements and has not had a decrease in her hemoglobin and hematocrit consistent with active GI bleeding. At this time, the most likely etiology for her bleed would have been of a colonic origin and I would favor a diverticular bleed given the amount of blood loss as well as the spontaneous resolution of bleeding with administration of GoLYTELY. RECOMMENDATIONS: 1. Would continue to trend her hemoglobin and hematocrit and transfuse as necessary to maintain hemoglobin and hematocrit of 7/21. 2. Continue to monitor clinically for signs of active GI bleeding. 3. Can continue pantoprazole 40 mg daily for more acid reflux purposes rather than prevention of upper GI bleed. 4. If the patient exhibits a decrease in her hemoglobin and hematocrit or signs of continued melena, I would recommend a tagged red cell scan for further localization of the bleed. 5. Would continue to hold anticoagulation for at least the next 48 hours in light of her prior significant bleed. 6. Would advance diet as tolerated. 7. Pain control per primary team. We will continue to follow. Please call with any questions. Job ID: [id number]
[2019-07-09] MEDS: Sodium Chloride 0.9% 1,000 ML IV SCH ×2 (03:49→09:34)
[2019-07-09 06:09] LABS: #Basophils 0.1 thou/uL (0.0-0.2); #Eosinphils 0.2 thou/uL (0.0-0.7); #Lymphocytes 2.2 thou/uL (1.20-3.40); %Basophils 0.6 % (0.0-1.0); %Eosinophils 2.8 % (0.0-10.0); %Lymphocytes 25.6 % (21.0-51.0); %Monocytes 12.2 % (0.0-10.0); %Neutrophils 58.7 % (42.0-75.0); Hemoglobin 9.1 g/dL (12.0-16.0); Mean Corpuscular HGB CONC 33.9 g/dL (32.0-36.0); Mean Corpuscular Hemoglobin 28.9 pg (27.0-31.0); Mean Corpuscular Volume 85.3 fL (78.0-98.0); Mean Platelet Volume 7.4 fL (7.4-10.4); Platelet Count 276 thou/uL (130-400); RBC Distribution Width 21.6 % (11.5-14.5); Red Blood Cell (RBC) Count 3.14 mill/uL (4.20-5.40); White Blood Cell (WBC) Count 8.4 thou/uL (4.8-10.8)
[2019-07-09 06:28] LABS: Anion Gap 10 mmol/L (10-20); BUN (Urea Nitrogen) 5 mg/dL (9.8-20.1); Calc. Creatinine Clearance 94 mL/min (70-130); Calcium 7.6 mg/dL (7.8-10.44); Carbon Dioxide 23 mmol/L (23-31); Chloride 111 mmol/L (98-107); Estimated GFR-MDRD Greater than 90; Glucose 95 mg/dL (83-110); Potassium 3.5 mmol/L (3.5-5.1); Sodium 140 mmol/L (136-145)
[2019-07-09] MEDS: Levothyroxine Sodium 100 MCG TAB PO SCH (09:17)
[2019-07-09] MEDS: Pantoprazole 40 MG VIAL IVP SCH (09:17)
--- NOTE | 2019-07-09 19:58 | PDOC.HOSPP ---
- Subjective Encounter Date: 07/09/19 Encounter Time: 10:54 Subjective: 74 y/o female with afib on chronic anticoagulation with xarelto amongst others admitted with worsening weakness and dizziness. Found to have severe anemia with Hb of 4.9. resuscitated with IVF and PRBC and later had EGD and colonoscopy but no active bleeding spot was noted. Moderate sigmoid diverticulosis with large blood in the colon without blood in the ileum noted suggestive of colonic bleeding. Clinicaly improved. No BM since after colonoscopy. - Objective Vital Signs & Weight: Vital Signs (12 hours) Temp Pulse Resp BP BP Pulse Ox 07/09/19 19:41 98.2 F 73 20 118/69 92 L 07/09/19 07:59 97.9 F 70 16 138/75 99 Weight Weight 173 lb 3 oz Most Recent Monitor Data Heart Rate from ECG 68 NIBP 166/66 NIBP BP-Mean 99 Respiration from ECG 14 SpO2 96 I&O: 07/08/19 07/09/19 07/10/19 06:59 06:59 06:59 Intake Total 3079 4200 Output Total 3950 6350 Balance -871 -2150 Result Diagrams: 07/09/19 05:36 07/09/19 05:36 Hospitalist ROS - Medication Medications: Active Medications Generic Name Dose Route Start Last Admin Trade Name Freq PRN Reason Stop Dose Admin Levothyroxine Sodium 100 mcg 07/07/19 09:00 07/09/19 09:17 Synthroid PO 100 mcg DAILY [place] Administration Metoprolol Succinate 50 mg 07/07/19 09:00 07/09/19 09:17 Toprol Xl PO 50 mg DAILY [place] Administration - Exam General Appearance: awake alert Eye: anicteric sclera ENT: normocephalic atraumatic Neck: supple, symmetric Heart: RRR, murmur present Respiratory: no wheezes, no rales, no ronchi, normal chest expansion Gastrointestinal: soft, non-tender, non-distended, normal bowel sounds Extremities: no cyanosis, no edema Neurological: cranial nerve grossly intact, no focal deficits Musculoskeletal: generalized weakness Psychiatric: A&O x 3 Hosp A/P (1) Acute blood loss anemia Code(s): D62 - ACUTE POSTHEMORRHAGIC ANEMIA Status: Acute (2) GI bleed Code(s): K92.2 - GASTROINTESTINAL HEMORRHAGE, UNSPECIFIED Status: Acute (3) S/P cardiac pacemaker procedure Status: Acute (4) SVT (supraventricular tachycardia) Code(s): I47.1 - SUPRAVENTRICULAR TACHYCARDIA Status: Acute (5) HLD (hyperlipidemia) Code(s): E78.5 - HYPERLIPIDEMIA, UNSPECIFIED Status: Chronic (6) HTN (hypertension) Code(s): I10 - ESSENTIAL (PRIMARY) HYPERTENSION Status: Chronic Qualifiers: Hypertension type: essential hypertension Qualified Code(s): I10 - Essential (primary) hypertension (7) Hypothyroidism Code(s): E03.9 - HYPOTHYROIDISM, UNSPECIFIED Status: Chronic Qualifiers: Hypothyroidism type: unspecified Qualified Code(s): E03.9 - Hypothyroidism , unspecified (8) Obesity (BMI 30.0-34.9) Code(s): E66.9 - OBESITY, UNSPECIFIED Status: Chronic (9) Paroxysmal a-fib Code(s): I48.0 - PAROXYSMAL ATRIAL FIBRILLATION Status: Chronic (10) Sick sinus syndrome Code(s): I49.5 - SICK SINUS SYNDROME Status: Chronic - Plan DC IV fluid and estrada catheter. increase activity. Advance diet Possible discharge tomorrow if H/H remained stable.
[2019-07-10 06:15] LABS: #Eosinphils 0.3 thou/uL (0.0-0.7); #Lymphocytes 1.6 thou/uL (1.20-3.40); #Monocytes 0.9 thou/uL (0.11-0.59); #Neutrophils 4.1 thou/uL (1.40-6.50); %Basophils 0.7 % (0.0-1.0); %Eosinophils 4.4 % (0.0-10.0); %Lymphocytes 22.6 % (21.0-51.0); %Monocytes 12.6 % (0.0-10.0); %Neutrophils 59.7 % (42.0-75.0); Mean Corpuscular HGB CONC 33.9 g/dL (32.0-36.0); Mean Corpuscular Hemoglobin 28.9 pg (27.0-31.0); Mean Corpuscular Volume 85.3 fL (78.0-98.0); Mean Platelet Volume 6.9 fL (7.4-10.4); Platelet Count 304 thou/uL (130-400); RBC Distribution Width 20.6 % (11.5-14.5); White Blood Cell (WBC) Count 6.9 thou/uL (4.8-10.8)
[2019-07-10 06:32] LABS: Albumin 2.8 g/dL (3.4-4.8); Anion Gap 8 mmol/L (10-20); BUN (Urea Nitrogen) 6 mg/dL (9.8-20.1); BUN/Creatinine Ratio 9.38; Calc. Creatinine Clearance 93 mL/min (70-130); Calcium 7.7 mg/dL (7.8-10.44); Carbon Dioxide 25 mmol/L (23-31); Chloride 109 mmol/L (98-107); Estimated GFR-MDRD 90; Glucose 100 mg/dL (83-110); Phosphorus 3.6 mg/dL (2.3-4.7); Potassium 3.7 mmol/L (3.5-5.1); Sodium 138 mmol/L (136-145)
[2019-07-10 07:38] VITALS: BP 159/76; TEMP 98.5
[2019-07-10] MEDS: Levothyroxine Sodium 100 MCG TAB PO SCH (09:00)
--- NOTE | 2019-07-11 05:07 | PQF ---
EVELIA SAUL OBI, CHIZOBA C [id number] [facility]- B03 [id number] CLINICAL DOCUMENTATION CLARIFICATION FORM: POST DISCHARGE Addendum to original discharge summary date: ____ Late entry note date: __ DATE: 07/11/19 ATTN: Ana Luisa Bravo Obi Please exercise your independent, professional judgment in responding to the clarification form. Clinical indicators are provided on the bottom of this form for your review In your clinical opinion based on clinical findings below, can you please identify the condition as the reason for Inpatient admission if due to: Please check appropriate box(s): [ ] Colonic Diverticulosis with Bleeding [ ] Acute blood loss Anemia [ ] Iatrogenic Coagulopathy [ x ] other condition, please specify: Acute GI bleeding with severe anemia [ ] Unable to determine In addition, please specify: Present on Admission (POA): [ x ] Yes [ ] No [ ] Unable to determine For continuity of documentation, please document condition throughout progress notes and discharge summary. Thank You. CLINICAL INDICATORS - SIGNS / SYMPTOMS / LABS H&P p1 07/06 Dr Bowen came to the hospital with weakness and dizziness. The patient started having vague symptoms 2-3 days back and it was getting worse H&P p1 07/06 Dr Bowen She has also started noticing dark stools and she was brought to the hospital H&P p1 07/06 Dr Bowen In the ER, she was found to have hemoglobin of 4.9 and is getting transfused and she is planned t have EGD H&P p2 07/06 Dr Bowen Lab date Hgb 4.9, WBC11.9, Platelets 291 and INR2.1 H&P p3 07/06 Dr Bowen Severe Anemia secondary to GI bleed Colonoscopy 07/07 Impression: Sigmoid Diverticulosis more likely source of bleeding RISK FACTORS H&P p1 07/06 74-year-old Female H&P p1 07/06 Afib on Anticoagulant H&P p1 07/06 Home meds of Aspirin 81mg Daily and Xarelto 20mg PO bedtime H&P p3 07/06 - Coagulopathy TREATMENTS: Blood bank 07/06 Transfused 2 units of PRBC OCT 28 Kcentral OCT 28 Protonix Drip H&P p3 07/06 - Hold Aspirin and Xarelto GE Consult 07/06 Akash Isaac EGD 07/06 Akash Isaac Colonoscopy 07/07 Akash Isaac (This form is maintained as a part of the permanent medical record) 2014 [employer]. All Rights Reserved [email or web address] [not provided] MTDD
--- NOTE | 2019-07-11 05:07 | PQF ---
EVELIA SAUL OBI, CHIZOBA C [id number] [facility]- B03 [id number] CLINICAL DOCUMENTATION CLARIFICATION FORM: POST DISCHARGE Addendum to original discharge summary date: ____ Late entry note date: __ DATE:07/11/19 ATTN: Ana Luisa Bravo Obi Please exercise your independent, professional judgment in responding to the clarification form. Clinical indicators are provided on the bottom of this form for your review In your clinical opinion based on clinical findings below, can you please identify etiology of Melena if due to: Please check appropriate box(s): [ ] Adverse effect of anticoagulant [ x ] Colonic Diverticulosis [ ] Other condition, please specify: [ ] Unable to Determine In addition, please specify: Present on Admission (POA): [ x ] Yes [ ] No [ ] Unable to determine For continuity of documentation, please document condition throughout progress notes and discharge summary. Thank You. CLINICAL INDICATORS - SIGNS / SYMPTOMS / LABS H&P p1 07/06 Dr Bowen came to the hospital with weakness and dizziness. The patient started having vague symptoms 2-3 days back and it was getting worse H&P p1 07/06 Dr Bowen She has also started noticing dark stolls and she was brought to the hospital H&P p1 07/06 Dr Bowen In the ER, she was found to have hemoglobin of 4.9 and is getting transfused and she is planned t have EGD H&P p2 07/06 Dr Bowen Lab date Hgb 4.9, WBC11.9, Platelets 291 and INR2.1 H&P p3 07/06 Dr Bowen Severe Anemia secondary to GI bleed Colonoscopy 07/07 Impression: Sigmoid Diverticuloses more likely source of bleeding RISK FACTORS H&P p1 07/06 74-year-old Female H&P p1 07/06 Afib on Anticoagulant H&P p1 07/06 Home meds of Aspirin 81mg Daily and Xarelto 20mg PO bedtime H&P p3 07/06 - Coagulopathy TREATMENTS: Blood bank 07/06 Transfused 2 units of PRBC OCT 28 Kcentral OCT 28 Protonix Drip H&P p3 07/06 - Hold Aspirin and Xarelto GE Consult 07/06 Akash Isaac EGD 07/06 Akash Isaac Colonoscopy 07/07 Akash Isaac (This form is maintained as a part of the permanent medical record) 2014 [employer] All Rights Reserved [email or web address] [not provided] MTDD
--- NOTE | 2019-07-11 07:17 | DIS ---
DATE OF ADMISSION: 07/06/2019 DATE OF DISCHARGE: 07/10/2019 PRIMARY CARE PHYSICIAN: Annie Rizo, DO DISCHARGE DIAGNOSES: 1. Acute gastrointestinal bleeding presumed to be from diverticulosis: present on admission 2. Presumed acute diverticular bleed. 3. Acute severe blood loss anemia. 4. Paroxysmal atrial fibrillation, on chronic anticoagulation with Xarelto. 5. Sick sinus syndrome. 6. Hypothyroidism. 7. Obesity. 8. Hypertension. 9. Hyperlipidemia. 10. Supraventricular tachycardia. 11. Diverticulosis. 12. Hypokalemia. CONSULTS: Gastroenterology. PROCEDURES PERFORMED: 1. Esophagogastroduodenoscopy, which showed large duodenal diverticulum with normal mucosa within the diverticular sites. Otherwise, normal upper endoscopy. 2. Colonoscopy, which showed large amount of retained black red stool seen throughout the entire colon, but not in the terminal ileum making the colonic bleeding source more likely, though the etiology of her bleed was not seen on examination. Moderate sigmoid diverticulosis as well as small internal hemorrhoids. HOSPITAL COURSE: A 74-year-old female with paroxysmal atrial fibrillation, on chronic anticoagulation with Xarelto, amongst others, admitted with worsening weakness and dizziness. The patient was found to have severe anemia with hemoglobin of 4.9. She was resuscitated with IV fluid and packed red blood cells. She later had EGD, which was unremarkable other than duodenal diverticulum. She was subsequently prepared and had a colonoscopy, which showed no active bleeding spot, however, large amount of blood was seen in the colon and the patient also was noted to have moderate sigmoid diverticulosis. It was felt that she most likely had diverticular bleed given finding of diverticulosis and blood limited to the colon. Hemoglobin and hematocrit were observed subsequently post colonoscopy and there was no further drop and the patient remained stable. Her diet was advanced to regular. The patient felt good and was subsequently discharged home. She was instructed to restart anticoagulation on July 12, 2019. She was also instructed to return to the ER should she have any features of bleeding. PHYSICAL EXAMINATION: VITAL SIGNS: Temperature 98.5, pulse 66, respiratory rate 18, SpO2 of 94 on room air, and blood pressure is 159/76. GENERAL: Elderly female, in no obvious distress. Afebrile. Anicteric. Acyanotic. HEENT: Normocephalic, atraumatic. Oral mucosa is moist. CARDIOVASCULAR: Regular rhythm and rate with soft systolic murmur. RESPIRATORY: Fair air entry bilateral with no obvious crackle or rhonchi. GASTROINTESTINAL: Full, soft, nontender, and nondistended with normal bowel sounds. MUSCULOSKELETAL/EXTREMITIES: Moderate kyphoscoliosis noted. Lower extremities are otherwise grossly normal with no obvious edema or erythema. CENTRAL NERVOUS SYSTEM: Conscious and alert and oriented x3 with appropriate mental status. Cranial nerves II through XII are grossly intact. The patient is ambulant, but with a walker. DISCHARGE CONDITION: Improved. DISCHARGE DISPOSITION: Home. DISCHARGE INSTRUCTIONS: 1. Follow up with PCP in 7 days. 2. Restart anticoagulation on July 12, 2019. 3. Follow up with Gastroenterology in 2 to 3 weeks. 4. Return to the emergency room if bleeding restarts. 5. Follow up with [facility] in 2 to 3 weeks. DISCHARGE MEDICATIONS: 1. Cholecalciferol 2000 units p.o. daily. 2. Cyanocobalamin 1000 mcg p.o. daily. 3. Multaq 400 mg p.o. b.i.d. 4. Krill oil 350 mg p.o. daily. 5. Levothyroxine 1000 mcg p.o. daily. 6. Loratadine 10 mg p.o. daily. 7. Multivitamin one tablet p.o. daily. 8. Aspirin 81 mg p.o. daily. 9. Ferrous sulfate 325 mg p.o. b.i.d. 10. Metoprolol succinate 50 mg p.o. daily. 11. Protonix 40 mg p.o. daily. 12. Xarelto 20 mg p.o. daily at bedtime. TIME SPENT: This discharge took more than 40 minutes. Job ID: [id number] MTDD
== END 2019-07-10 14:15 | disposition home or self-care (01) | DRG 811 ==
LOC: ERS 09:40 → SDC 13:32 → IMCU/EMU 17:24 → T4-A 07-08 18:11
PROVIDERS: ADMIT Internal Medicine; ATTEND Internal Medicine
PROC: 30233N1 Transfusion of Nonautologous Red Blood Cells into Peripheral Vein, Percutaneous Approach (ICD-10-PCS; principal; 2019-07-06)
PROC: 30283B1 Transfusion of Nonautologous 4-Factor Prothrombin Complex Concentrate into Vein, Percutaneous Approach (ICD-10-PCS; 2019-07-06)
PROC: 0DJ08ZZ Inspection of Upper Intestinal Tract, Via Natural or Artificial Opening Endoscopic (ICD-10-PCS; 2019-07-06)
PROC: 0DJD8ZZ Inspection of Lower Intestinal Tract, Via Natural or Artificial Opening Endoscopic (ICD-10-PCS; 2019-07-07)
PROC: 3E02340 Introduction of Influenza Vaccine into Muscle, Percutaneous Approach (ICD-10-PCS; 2019-07-08)
DX: D62 Acute posthemorrhagic anemia (principal); K57.31 Diverticulosis of large intestine without perforation or abscess with bleeding; D68.9 Coagulation defect, unspecified; I47.1 Supraventricular tachycardia; E03.9 Hypothyroidism, unspecified; I49.5 Sick sinus syndrome; I10 Essential (primary) hypertension; K57.30 Diverticulosis of large intestine without perforation or abscess without bleeding; K64.8 Other hemorrhoids; E66.9 Obesity, unspecified; I48.0 Paroxysmal atrial fibrillation; E87.6 Hypokalemia; E78.5 Hyperlipidemia, unspecified; Z68.32 Body mass index [BMI] 32.0-32.9, adult; Z23 Encounter for immunization; Z85.3 Personal history of malignant neoplasm of breast; Z79.899 Other long term (current) drug therapy; Z79.82 Long term (current) use of aspirin; Z79.890 Hormone replacement therapy; Z79.01 Long term (current) use of anticoagulants; Z88.0 Allergy status to penicillin; Z88.8 Allergy status to other drugs, medicaments and biological substances
CPT/HCPCS: 36415; 36430; 80048; 80053; 80069; 81003; 84484; 85025; 85060; 85610; 85730; 86850; 86900; 86901; 90471; 90662; 93005; C9113; C9132; G0008; J2001; J2704; J3490; P9016

== ENCOUNTER 2019-08-21 09:44 | Outpatient (CLI) | payer MEDICARE, BC ==
--- NOTE | 2019-08-21 12:04 | CT ---
EXAM: CT Abdomen WO Con DATE: 08/21/2019 12:00 AM INDICATION: History of pancreatic cysts COMPARISON: Prior CT abdomen and pelvis with and without contrast dated March 19, 2019. FINDING: History of breast cancer and pancreatic cysts. 3 successful IVs were started; however, all infiltrated with 7-10 cc of saline administered. Patient asked that the exam be done without IV contrast. The supervising radiologist, Dr. Toscano, improved the noncontrast evaluation. The small hypodensities within the region of the pancreatic body are relatively stable. The most prom inent is seen on image 54 series 2 measuring approximately 4 mm on this noncontrast examination. An additional prominent suspected cystic abnormality involving the pancreatic tail is stable measuring 7 .5 mm on image 46 of series 2. The 2 additional hypodensities within the distal pancreatic body and tail are not well seen due to the lack of IV contrast. There is mild left basilar atelectasis. The unopacified liver, adrenal glands, spleen and unopacified kidneys are unremarkable appearing. The re are mild vascular calcifications involving abdominal aorta. There is stable prominent fat-containing umbilicus hernia. There is prominent levoscoliosis of the thoracolumbar spine. There i s severe scattered disc degenerative and osteoarthritic change. IMPRESSION:Small hypodensities within the pancreatic body and tail are relatively stable when compari ng this noncontrast examination with the noncontrast portion of the CT the abdomen and pelvis with and without contrast dated 03/19/2019. As a conservative measure a follow-up examination in 6 months w ith and without IV contrast is recommended.
== END 2019-08-21 09:45 | disposition home or self-care (01) ==
LOC: BICCT 09:44
PROVIDERS: ATTEND Internal Medicine
DX: K86.2 Cyst of pancreas (principal)
CPT/HCPCS: 74150

== ENCOUNTER 2020-08-04 15:25 | Inpatient (IN) | payer MEDICARE, BC ==
[~2020-08-04 15:25] MED LIST changes: +Iopamidol-370 76% 500 ML 1 ML ONE; -Lidocaine 1% PF 5 ML VIAL ONE; -PROPOFOL 200 MG/20 ML VIAL ONE
[2020-08-04 16:24] LABS: #Basophils 0.1 thou/uL (0.0-0.2); #Lymphocytes 2.3 thou/uL (1.20-3.40); #Monocytes 0.8 thou/uL (0.11-0.59); #Neutrophils 10.3 thou/uL (1.40-6.50); %Basophils 0.4 % (0.0-1.0); %Eosinophils 0.3 % (0.0-10.0); %Lymphocytes 16.9 % (21.0-51.0); %Neutrophils 76.5 % (42.0-75.0); Hemoglobin 9.4 g/dL (12.0-16.0); Mean Corpuscular HGB CONC 34.7 g/dL (32.0-36.0); Mean Corpuscular Hemoglobin 31.6 pg (27.0-31.0); Mean Corpuscular Volume 91.1 fL (78.0-98.0); Mean Platelet Volume 6.8 fL (7.4-10.4); Platelet Count 379 thou/uL (130-400); RBC Distribution Width 13.2 % (11.5-14.5); Red Blood Cell (RBC) Count 2.98 mill/uL (4.20-5.40); White Blood Cell (WBC) Count 13.4 thou/uL (4.8-10.8)
[2020-08-04 16:52] LABS: ALT (SGPT) 16 U/L (8-55); AST (SGOT) 25 U/L (5-34); Albumin 3.8 g/dL (3.4-4.8); Alkaline Phosphatase 50 U/L (40-110); Anion Gap 13 mmol/L (10-20); BUN (Urea Nitrogen) 34 mg/dL (9.8-20.1); Bilirubin, Total 0.3 mg/dL (0.2-1.2); Calc. Creatinine Clearance 0 mL/min (70-130); Carbon Dioxide 22 mmol/L (23-31); Chloride 103 mmol/L (98-107); Globulin 2.4 g/dL (2.4-3.5); Glucose 101 mg/dL (83-110); Potassium 4.2 mmol/L (3.5-5.1); Protein, Total 6.2 g/dL (6.0-8.3); Sodium 134 mmol/L (136-145)
--- NOTE | 2020-08-04 17:31 | CT ---
CT of the abdomen and pelvis: 08/04/2020 COMPARISON: 08/21/2019 and 03/19/2019 HISTORY: One-week history of dark stool and diffuse abdominal pain TECHNIQUE: Axial CT imaging at 5 mm intervals from lung bases through pubic symphysis with IV contras t. Coronal and sagittal reformatted imaging obtained FINDINGS: Incompletely imaged transvenous pacing device present. Left hip arthroplasty noted. Imaged lung bases demonstrate no acute findings. No free intraperitoneal air. Nonspecific prominence of the gallbladder wall is noted, an appearance which is similar when compared to a CT of the abdomen and pelvis performed 03/19/2019. The spleen and adrenal glands are unremarkable. There is a low density lesion in the tail of the pancreas on axial image 23 measuring 8 mm, nonspecif ic and not discretely visualized on the 2019 exam. 2 similar hypodense lesions are noted within the body of the pancreas on image 27 measuring 8-9 mm each, one of which was visualized on the 2019 study and appears stable. A similar hypodense lesion is suspected within the region of the pancreatic head on axial image 31 measuring 7 mm, not discretely visualized on the 2019 exam. Kidneys appear unremarkable. Uterus is lobulated and contains multiple hypodense lesions suggesting fibroid disease which could be better assessed on follow-up pelvic ultrasound. Trace free fluid is noted in the pelvic cul-de-sac on the left. There is prominent diverticulosis of the sigmoid colon, and to a lesser degree, the descending colon. No evidence for diverticulitis. No evidence for bowel obstruction. No focal area of bowel inflammatory change is noted. There is a fat-containing umbilical hernia measuring 5.6 x 4.6 cm, chanell lar when compared to the 2019 examination. The vascular structures demonstrate scattered atherosclerotic calcification of the abdominal aorta an d its branches. The abdomen/pelvis demonstrates no evidence for lymphadenopathy. Small sliding-type hiatal hernia is present. Review of the osseous structures demonstrates prominent multilevel degenerative change within the spi ne, most severe at the lumbosacral junction and the the thoracolumbar junction with associated prominence levoscoliosis at the thoracolumbar junction. No worrisome lytic or blastic bone lesion. IMPRESSION: 1. No free intraperitoneal air or evidence for bowel obstruction 2. Nonspecific wall thickening of the gallbladder, similar when compared to the 2019 exam. 3. Colonic diverticulosis without evidence for diverticulitis. 4. Multiple low-density lesions within the pancreas, difficult to definitively assess given small siz e. Short-term follow-up nonemergent abdominal MRI is suggested. 5. Stable prominent fat-containing umbilical hernia. CODE T
--- NOTE | 2020-08-04 18:39 | PDOC.HHP ---
Hospitalist HPI - History of Present Illness Melena History of Present Illness: PCP: Dr. Romero The patient is a 75-year-old female with a past medical history significant for atrial fibrillation (on Eliquis/ASA), HTN, hypothyroidism and breast cancer that presents to the emergency department for above complaint. The patient reports melenic stools for the past 5 to 7 days. She reports several episodes of "jet black" diarrhea. She reports associated shortness of breath and lightheadedness. She reports a similar episode of melenic stools in June 2019. At that time, she underwent a diagnostic colonoscopy, but was unable to find the source of the bleed, which resolved spontaneously. She denies any recent trauma or falls. Denies any recent procedures/surgeries. She denies any chest pain or heart palpitations. She has a chronic umbilical hernia. She denies any abdominal pain, nausea, vomiting or hemoptysis. She has no urinary symptoms. She is on Xarelto for her atrial fibrillation. She does not take chronic steroids or NSAIDs. She has no history of liver disease or family clotting disorders. She denies any fever or chills. She denies any cough or wheezes. She denies any dysuria or hematuria. ED Course: VITAL SIGNS SunAug 04, 2020 15:36 ADELIA Salcedo Amanda BP: 148/68, Pulse: 76, Resp: 22, Temp: 97.8 (Oral), Pain: 0, O2 sat: 98 on (Room Air), Time: 08/04/2020 15:36. VITAL SIGNS SunAug 04, 2020 16:31 ADELIA Ghosh Lauren BP: 120/65, Pulse: 60, Resp: 19, Pain: 0, O2 sat: 98 on (Room Air), Time: 08/04/2020 16:31. VITAL SIGNS SunAug 04, 2020 17:00 ADELIA Ghosh Lauren BP: 112/47, Pulse: 62, Resp: 19, Pain: 0, O2 sat: 98 on (Room Air), Time: 17:00. Medication: None Hospitalist ROS - Review of Systems All other systems reviewed; all pertinent +/- noted in HPI/Subj - Medication Medications: aspirin oral SunAug 04, 2020 15:48 ADELIA Salcedo Amanda TABLET : Strength - 81 mg : ORAL Patient Dose: 324 mg Oral once a day (at bedtime). meTOPROLOL tartrate oral SunAug 04, 2020 15:48 ADELIA Salcedo Amanda TABLET : Strength - 50 mg : ORAL Patient Dose: 25 mg 2 times a day. multivitamin oral SunAug 04, 2020 15:48 ADELIA Salcedo Amanda TABLET : ORAL Patient Dose: Unknown. Vitamin B-12 oral SunAug 04, 2020 15:48 ADELIA Salcedo Amanda TABLET : Strength - 1,000 mcg : ORAL Patient Dose: Unknown. Vitamin D (with calcium) SunAug 04, 2020 15:48 ADELIA Salcedo Amanda TABLET : Strength - 77 mg-400 unit : ORAL Patient Dose: 1 tab(s) Oral once a day. Synthroid oral SunAug 04, 2020 15:48 ADELIA Salcedo Amanda TABLET : Strength - 100 mcg : ORAL Patient Dose: 100 mcg Oral once a day (in the morning). Xarelto SunAug 04, 2020 15:48 ADELIA Salcedo Amanda TABLET : Strength - 20 mg : ORAL Patient Dose: Unknown. Multaq SunAug 04, 2020 15:48 ADELIA Salcedo Amanda tablet : Strength - 400 mg : ORAL Patient Dose: 1 mg Oral 2 times a day (before meals). DHEA capsule SunAug 04, 2020 15:52 ADELIA Salcedo Amanda capsule : Strength - 50 mg : ORAL Patient Dose: 1 tab(s) Oral once a day (in the morning). Allergies: Darvocet A500, Penicillins, propoxyphene napsylate (Unconfirmed) Hospitalist History - Past Medical History Source: patient, RN notes reviewed Cardiac: reports: AFIB (On Eliquis), HTN Gastrointestinal: reports: Diverticulosis Heme/Onc: reports: Cancer (Breast cancer) Endocrine: reports: Hypothyroidism - Past Surgical History Past Surgical History: reports: Other (Left hip replacement, pacemaker (2008), femur fracture, right partial mastectomy) - Family History Other Family History: Noncontributory to this case - Social History Smoking Status: Never smoker Alcohol: reports: None Drugs: reports: none Living Situation: Alone Activity level: independent ambulation - Exam General Appearance: NAD, awake alert. negative: ill appearing Eye: anicteric sclera ENT: normocephalic atraumatic, moist mucosa Neck: supple, symmetric Heart: no murmur, no gallops, no rubs, normal peripheral pulses, irregular Respiratory: CTAB, no wheezes, no rales, no ronchi, normal chest expansion, no tachypnea Gastrointestinal: soft, non-tender, normal bowel sounds, no guarding, no rigidity Gastrointestinal - other findings: No rebound, umbilical hernia present, soft, reducible Extremities: no cyanosis, no edema Skin: no rashes Neurological: no focal deficits Psychiatric: normal affect, A&O x 3 Hospitalist Results - Labs Result Diagrams: 08/04/20 16:05 08/04/20 16:05 Lab results: WBC 13.4 thou/uL (4.8-10.8) H 08/04/20 16:05 Hgb 9.4 g/dL (12.0-16.0) L 08/04/20 16:05 Hct 27.1 % (36.0-47.0) L 08/04/20 16:05 MCV 91.1 fL (78.0-98.0) 08/04/20 16:05 Plt Count 379 thou/uL (130-400) 08/04/20 16:05 Neutrophils % 76.5 % (42.0-75.0) H 08/04/20 16:05 Sodium 134 mmol/L (136-145) L 08/04/20 16:05 Potassium 4.2 mmol/L (3.5-5.1) 08/04/20 16:05 Chloride 103 mmol/L (98-107) 08/04/20 16:05 Carbon Dioxide 22 mmol/L (23-31) L 08/04/20 16:05 BUN 34 mg/dL (9.8-20.1) H 08/04/20 16:05 Creatinine 0.79 mg/dL (0.6-1.1) 08/04/20 16:05 Glucose 101 mg/dL (83-110) 08/04/20 16:05 Calcium 9.0 mg/dL (7.8-10.44) 08/04/20 16:05 Total Bilirubin 0.3 mg/dL (0.2-1.2) 08/04/20 16:05 AST 25 U/L (5-34) 08/04/20 16:05 ALT 16 U/L (8-55) 08/04/20 16:05 Alkaline Phosphatase 50 U/L (40-110) 08/04/20 16:05 Serum Total Protein 6.2 g/dL (6.0-8.3) 08/04/20 16:05 Albumin 3.8 g/dL (3.4-4.8) 08/04/20 16:05 - Radiology Interpretation CT scan - abdomen Status: report reviewed by me Additional Comment: IMPRESSION: 1. No free intraperitoneal air or evidence for bowel obstruction 2. Nonspecific wall thickening of the gallbladder, similar when compared to the 2019 exam. 3. Colonic diverticulosis without evidence for diverticulitis. 4. Multiple low-density lesions within the pancreas, difficult to definitively assess given small size. Short-term follow-up nonemergent abdominal MRI is suggested. 5. Stable prominent fat-containing umbilical hernia. Hospitalist H&P A/P - Problem (1) GI bleed Code(s): K92.2 - GASTROINTESTINAL HEMORRHAGE, UNSPECIFIED Status: Acute (2) Symptomatic anemia Code(s): D64.9 - ANEMIA, UNSPECIFIED Status: Acute (3) Atrial fibrillation Code(s): I48.91 - UNSPECIFIED ATRIAL FIBRILLATION Status: Chronic (4) Pancreatic lesion Code(s): K86.9 - DISEASE OF PANCREAS, UNSPECIFIED Status: Chronic (5) HTN (hypertension) Code(s): I10 - ESSENTIAL (PRIMARY) HYPERTENSION Status: Chronic (6) Hypothyroidism Code(s): E03.9 - HYPOTHYROIDISM, UNSPECIFIED Status: Chronic - Plan Plan: 75/F with PMH A. fib on Xarelto presents for melena. Limit the patient to telemetry floor, inpatient status. Expected length of stay greater than 2 midnights. Presented stable vital signs, on beta-bahman. CT abdominal pelvis colonic diverticulosis without evidence of diverticulitis. Hemoglobin 9.4, hematocrit 27.1 BUN 34, creatinine 2.79 #Acute GI bleed Similar episode 1119, underwent colonoscopy by Dr. Thurman Hold Xarelto and aspirin. Trend H/H every 6 hours. Start PPI. Consult GI. N.p.o. after midnight. Check iron studies, FOBT, PT/INR, T&S. Check orthostatic vital signs. #Symptomatic anemia Likely to problem for 1. #Atrial fibrillation Rate controlled. Takes metoprolol, Multaq, Xarelto, aspirin at home. Restart metoprolol and Multaq. Hold Xarelto and aspirin. Obtain baseline EKG. #Pancreatic lesions Incidental finding on CT of abdomen pelvis Recommend nonemergent MRI as follow-up. Patient aware of lesions from previous studies. #HTN Presented normotensive. Continue to monitor BP. Restart home dose metoprolol. #Hypothyroidism Takes Synthroid. Restart home dose Synthroid. Check baseline TSH. SCDs for DVT prophylaxis. No pharmacological DVT prophylaxis. PPIs for GI prophylaxis. Full code. Discussed the case with Dr. Lagunas.
[2020-08-04] MEDS ORDERED: Acetaminophen 325 MG TAB PO PRN (19:31)
[2020-08-04] MEDS ORDERED: Ondansetron PF 4 MG/2 ML Vial IVP PRN (19:31)
[2020-08-04] MEDS ORDERED: Ondansetron ODT 4 MG TAB PO PRN (19:31)
[2020-08-04 19:54] LABS: INR-International Normal Ratio 1.4; PTT 32.6 sec (22.9-36.1); Prothrombin Time 17.9 sec (12.0-14.7)
[2020-08-04 21:42] VITALS: BMI 30.3
[2020-08-04 21:50] LABS: Reticulocyte Count 4.5 % (0.5-1.5)
[2020-08-04 22:04] LABS: Iron 90 ug/dL (50-170); Iron Binding Capacity, Total 340 mcg/dL (265-497)
[2020-08-04 22:35] LABS: Ferritin 36.47 ng/mL (10-291); Thyroid Stimulating Hormone 3.9293 uIU/mL (0.35-4.94)
[2020-08-04] MEDS: Pantoprazole 40 MG VIAL IVP SCH (23:57)
[2020-08-05 00:14] LABS: Hemoglobin 7.7 g/dL (12.0-16.0)
[2020-08-05 01:57] LABS: Bacteria/HPF None Seen HPF (None Seen); Bilirubin Negative (Negative); Blood, Urine Negative (Negative); Clarity Clear (Clear); Glucose, Urine (Dipstick) Normal (Negative); Ketone, Urine Negative (Negative); Leukocyte 250 Leu/uL (Negative); Nitrite Negative (Negative); Protein, Urine (Dipstick) Negative (Neg-Trace); RBC/HPF 0-3 HPF (0-3); Specific Gravity, Urine 1.027 (1.002-1.036); Squamous Epithelial 0-3 HPF (0-3); Urobilinogen Normal mg/dL (Less than 2); WBC/HPF 21-50 HPF (0-3); pH, Urine 5.5 (5.0-9.0)
[2020-08-05 04:44] LABS: #Basophils 0.1 thou/uL (0.0-0.2); #Eosinphils 0.1 thou/uL (0.0-0.7); #Lymphocytes 2.6 thou/uL (1.20-3.40); #Monocytes 0.8 thou/uL (0.11-0.59); #Neutrophils 4.2 thou/uL (1.40-6.50); %Basophils 0.9 % (0.0-1.0); %Eosinophils 1.4 % (0.0-10.0); %Lymphocytes 33.4 % (21.0-51.0); %Monocytes 9.8 % (0.0-10.0); %Neutrophils 54.5 % (42.0-75.0); Hemoglobin 8.1 g/dL (12.0-16.0); Mean Corpuscular HGB CONC 35.5 g/dL (32.0-36.0); Mean Corpuscular Hemoglobin 32.3 pg (27.0-31.0); Mean Platelet Volume 6.7 fL (7.4-10.4); Platelet Count 287 thou/uL (130-400); RBC Distribution Width 13.3 % (11.5-14.5); Red Blood Cell (RBC) Count 2.51 mill/uL (4.20-5.40); White Blood Cell (WBC) Count 7.7 thou/uL (4.8-10.8)
[2020-08-05 05:11] LABS: Anion Gap 12 mmol/L (10-20); BUN (Urea Nitrogen) 21 mg/dL (9.8-20.1); Calc. Creatinine Clearance 77 mL/min (70-130); Calcium 8.4 mg/dL (7.8-10.44); Carbon Dioxide 23 mmol/L (23-31); Chloride 104 mmol/L (98-107); Glucose 103 mg/dL (83-110); Potassium 3.8 mmol/L (3.5-5.1); Sodium 135 mmol/L (136-145)
[2020-08-05 06:26] LABS: SARS-CoV-2 MS2 Positive; SARS-CoV-2 N Gene Negative; SARS-CoV-2 S Gene Negative; SARS-CoV-2 by NAA Not Detected (NotDetected); SARS-CoV-2 orf1ab Negative
[2020-08-05] MEDS: Levothyroxine Sodium 100 MCG TAB PO SCH (07:25)
[2020-08-05] MEDS: Dronedarone HCl 400 MG TAB PO SCH ×2 (08:20→16:26)
[2020-08-05] MEDS: Pantoprazole 40 MG VIAL IVP SCH ×2 (08:20→21:12)
[2020-08-05] MEDS ORDERED: Loratadine 10 MG TAB PO PRN (10:58)
[2020-08-05 12:14] LABS: Hemoglobin 10.6 g/dL (12.0-16.0)
--- NOTE | 2020-08-05 12:14 | CON ---
DATE OF CONSULTATION: 08/05/2020 REQUESTING PROVIDER: Keyon Chowdhury NP REASON FOR CONSULTATION: GI bleeding. HISTORY OF PRESENT ILLNESS: Jabier Oreilly is a very pleasant 75-year-old woman, who was admitted to the hospital yesterday with melena and acute blood loss anemia. She has a history of atrial fibrillation for which she is on Xarelto and aspirin. She has a pacemaker. She has a remote history of breast cancer. Back in June 2019, she had a similar hospital presentation here with melena and anemia. She underwent both upper and lower endoscopy by my colleague, Dr. Thurman. The EGD showed a large duodenal diverticulum, but was otherwise unremarkable. The colonoscopy was notable for some old retained blood throughout the colon and sigmoid diverticulosis as well as internal hemorrhoids, but no bleeding lesion found. It was hypothesized that this might have represented a diverticular bleed. That episode completely resolved. She was eventually started back on Xarelto, which she was taking up until admission yesterday. She reports that her hemoglobin had normalized as of earlier this year, but now she reports that for about the past 4 to 5 days, she started seeing dark stools again. These are jet black in color. They picked up in frequency yesterday and she started having lightheadedness and dizziness, which prompted her presentation. She has been hemodynamically stable here on arrival. Hemoglobin was 9.4 and this dropped to 7.7. She is getting 2 units of RBCs this morning. BUN was elevated to 34, but is coming down to 21 this morning. She denies any abdominal pain or nausea or really any other symptoms. Xarelto and aspirin have been held this morning. She was started on twice daily IV PPI. REVIEW OF SYSTEMS: Full review of systems including constitutional, head, eyes, ears, nose, throat, GI, , cardiovascular, respiratory, musculoskeletal, neurologic systems is negative except as noted in the HPI. PAST MEDICAL HISTORY: Breast cancer, status post right-sided mastectomy in 2002; hypertension; hypothyroidism; pacemaker placement; left hip replacement; atrial fibrillation, on Xarelto and aspirin; GI bleeding episode in June 2019; sigmoid diverticulosis; internal hemorrhoids; duodenal diverticulum. ALLERGIES: PENICILLIN AND PROPOXYPHENE. OUTPATIENT MEDICATIONS: 1. Xarelto 20 mg daily. 2. Aspirin 81 mg daily. 3. Multaq. 4. DHEA. 5. Metoprolol. 6. Synthroid. 7. Vitamin D. 8. Vitamin B12. 9. Multivitamin daily. FAMILY HISTORY: Noncontributory. SOCIAL HISTORY: No smoking, alcohol, or drug use. PHYSICAL EXAMINATION: VITAL SIGNS: Temperature 98.5, pulse is 62, blood pressure 150/68, 94% oxygen saturation on room air. GENERAL: A pale 75-year-old woman, sitting up in bed comfortably, in no distress. SKIN: She is pale. No jaundice. No rashes were palpable. HEENT: Eyes, no scleral icterus. Extraocular movements intact. ENT, mucous membranes moist. No oral lesions. LYMPHATIC: No submandibular or supraclavicular lymphadenopathy. THYROID: Nontender to palpation. HEART: Irregular rhythm. Pacemaker in place. LUNGS: Clear to auscultation bilaterally. No respiratory distress. ABDOMEN: Bowel sounds are present. Soft, nontender to palpation throughout. She has a reducible umbilical hernia. EXTREMITIES: No peripheral edema. VESSELS: Radial pulses 2+ bilaterally. NEUROLOGIC: Cranial nerves 2 throughout 12 intact bilaterally. No focal deficits. LABORATORY STUDIES: Hemoglobin initially 9.4, dropped to 7.7, now getting 2 units RBCs; WBC 7.7; platelets 287. INR 1.4. Sodium 135; potassium 3.8; BUN initially 34, now down to 21; creatinine 0.70. Normal B12, folic acid, iron studies, LFTs, and TSH. Urinalysis negative. COVID PCR negative. IMAGING STUDIES: CT of the abdomen and pelvis demonstrates no evidence of any free air or bowel obstruction. There is some stable nonspecific gallbladder thickening. Stable umbilical hernia. There are a few subcentimeter low-density pancreatic lesions, appear to have been visualized on prior CT last year. ASSESSMENT AND PLAN: 1. Melena, subacute over the past 5 days or so. 2. Acute blood loss anemia. She has had a significant hemoglobin decline. Notably BUN is elevated out of proportion to the creatinine. Clinically, this seems most consistent with subacute stable upper gastrointestinal bleed. I note that upper endoscopic examination was essentially unrevealing last year, but so was the colonoscopy. I do not think we need to plan on repeat colonoscopy. We will plan for esophagogastroduodenoscopy tomorrow after continuing to hold the Xarelto today. Continue with the IV Protonix 40 mg twice daily. We will give her a clear liquid diet today and then have her n.p.o. past midnight for the planned procedure. Continue to monitor clinically, trend H and H, further transfusions as needed. 3. Indeterminate pancreatic lesions. At least one of these was demonstrated on CT scan from 2019. These are subcentimeter. Given the lack of progression over the past year, these are likely benign. I do recommend she have an MRI dedicated to the pancreas in the next 2 to 3 months on an outpatient basis. 4. Further recommendations following esophagogastroduodenoscopy tomorrow. Thank you for the consultation. Please call anytime with questions or concerns. Job ID: [id number]
[2020-08-05 17:43] LABS: Hemoglobin 10.8 g/dL (12.0-16.0)
--- NOTE | 2020-08-05 18:55 | PDOC.HOSPP ---
- Subjective Encounter Date: 08/05/20 Encounter Time: 10:30 Subjective: Patient seen for follow-up regarding GI bleed. Denies chest pain or shortness of breath. - Objective Vital Signs & Weight: Vital Signs (12 hours) Temp Pulse Pulse Pulse Pulse Resp BP 08/05/20 15:39 98.4 F 74 20 08/05/20 14:13 62 86 133/58 L 08/05/20 12:15 97.7 F 79 19 08/05/20 09:41 98.5 F 62 18 08/05/20 08:00 98.6 F 69 16 BP BP BP BP Pulse Ox 08/05/20 15:39 141/63 H 96 08/05/20 14:13 135/63 08/05/20 12:15 140/79 97 08/05/20 09:41 150/68 H 08/05/20 08:00 129/60 94 L Weight Weight 160 lb 8 oz I&O: 08/04/20 08/05/20 08/06/20 06:59 06:59 06:59 Intake Total 680 2770 Output Total 570 1575 Balance 110 1195 Result Diagrams: 08/05/20 17:36 08/05/20 04:10 Additional Labs: Labs and MAR reviewed by me EKG Reviewed by me: Yes (Atrial fibrillation on telemetry) Hospitalist ROS - Review of Systems Cardiovascular: denies: chest pain, palpitations, orthopnea, paroxysmal noc. dyspnea, edema, light headedness Gastrointestinal: reports: melena. denies: nausea, vomiting, abdominal pain, diarrhea, constipation, hematochezia - Medication Medications: Active Medications Generic Name Dose Route Start Last Admin Trade Name Tao PRN Reason Stop Dose Admin Dronedarone 400 mg 08/05/20 08:00 08/05/20 16:26 Dronedarone Hcl 400 Mg Tab PO 400 mg BID-WM [place] Administration Levothyroxine Sodium 100 mcg 08/05/20 06:00 08/05/20 07:25 Levothyroxine Sodium 100 Mcg Tab PO 100 mcg 0600 [place] Administration Metoprolol Succinate 50 mg 08/05/20 09:00 08/05/20 08:20 Metoprolol Succinate Xl 50 Mg Tab PO 50 mg DAILY [place] Administration Pantoprazole Sodium 40 mg 08/04/20 21:00 08/05/20 08:20 Pantoprazole 40 Mg Vial IVP 40 mg BID [place] Administration - Exam General Appearance: awake alert Eye: anicteric sclera ENT: normocephalic atraumatic Neck: supple Heart: no rubs, irregular Respiratory: CTAB Gastrointestinal: soft, non-tender, non-distended, normal bowel sounds Skin: no rashes Psychiatric: normal affect, normal behavior Hosp A/P - Plan -Assessment (1) GI bleed Code(s): K92.2 - GASTROINTESTINAL HEMORRHAGE, UNSPECIFIED Status: Acute (2) Symptomatic anemia Code(s): D64.9 - ANEMIA, UNSPECIFIED Status: Acute (3) Atrial fibrillation Code(s): I48.91 - UNSPECIFIED ATRIAL FIBRILLATION Status: Chronic (4) Hypothyroidism Code(s): E03.9 - HYPOTHYROIDISM, UNSPECIFIED Status: Chronic (5) HTN (hypertension) Code(s): I10 - ESSENTIAL (PRIMARY) HYPERTENSION Status: Chronic - Plan Hemoglobin improved to 10.8 after transfusion of 2 units PRBC. Hemodynamically stable. For upper endoscopy tomorrow. Aspirin and anticoagulation on hold. Continue PPI. Patient needs nonemergent MRI as follow-up for incidental finding of pancreatic lesion on CT scan of abdomen and pelvis. Continue metoprolol and Multitak for atrial fibrillation. Continue Synthroid. SCDs for DVT prophylaxis. No pharmacological DVT prophylaxis.
[2020-08-05 23:57] LABS: Hemoglobin 10.3 g/dL (12.0-16.0)
[2020-08-06] MEDS: Levothyroxine Sodium 100 MCG TAB PO SCH (05:37)
[2020-08-06] MEDS ORDERED: Ondansetron HCl/PF 4 MG/2 ML Vial IVP PRN ×2 (08:53→10:49)
[2020-08-06] MEDS ORDERED: Lidocaine 1% PF 5 ML VIAL ONE (09:29)
[2020-08-06] MEDS ORDERED: PROPOFOL 200 MG/20 ML VIAL ONE (09:30)
[2020-08-06] MEDS ORDERED: Promethazine HCl 25 MG/ML VIAL SLOW IVP PRN (10:49)
[2020-08-06] MEDS ORDERED: Promethazine HCl 25 MG/ML VIAL IM PRN (10:49)
[2020-08-06] MEDS: Multivitamin W/ Minerals 1 TAB PO SCH (11:26)
[2020-08-06] MEDS: Magnesium Oxide 250 MG TAB PO SCH (11:26)
[2020-08-06] MEDS: Cyanocobalamin (Vitamin B-12) 1,000 MCG TAB PO SCH (11:27)
[2020-08-06] MEDS: Dronedarone HCl 400 MG TAB PO SCH ×2 (11:27→16:25)
[2020-08-06] MEDS: Cholecalciferol 1,000 UNITS (25 MCG) TAB PO SCH (11:28)
[2020-08-06] MEDS: Pantoprazole 40 MG VIAL IVP SCH ×2 (11:28→20:34)
--- NOTE | 2020-08-06 11:31 | OP ---
DATE OF PROCEDURE: 08/06/2020 QUALITY ASSURANCE NURSE SURGEON: None. PROCEDURE PERFORMED: Esophagogastroduodenoscopy, diagnostic. INDICATIONS: 1. Melena. 2. Acute blood loss anemia. 3. Atrial fibrillation, on Xarelto. Xarelto held at admission. MEDICATIONS: See Anesthesia record. FINDINGS: After discussion of the risks, benefits, and alternatives of the procedure, informed consent was obtained and witnessed. Pre-endoscopic cardiopulmonary examination was satisfactory. Time-out was performed before sedation was achieved. Sedation was achieved with Anesthesia assistance in the endoscopy unit. A Pentax adult upper endoscope was placed into the oropharynx and passed through the cricopharyngeus under direct visualization. The esophageal mucosa appeared normal throughout with a normal-appearing Z-line. The endoscope was advanced into the stomach. Forward and retroflexed views of the entire gastric mucosa were obtained. There is a small sliding hiatal hernia. The gastric mucosa appears normal. There was no evidence of any old blood or active bleeding or bleeding lesions in the stomach. The endoscope was passed through the pylorus and into the duodenal bulb. Within the duodenal bulb, there are multiple tiny punctate arteriovenous malformations. None of these are bleeding. The endoscope was advanced around the duodenal sweep into the second, third, and fourth portions of the duodenum. In these areas, the duodenal mucosa appears completely normal. There is a diverticulum in the second portion of the duodenum. There was no evidence of any old blood or active bleeding on this examination. The upper endoscope was completely withdrawn and the patient allowed to recover. The patient tolerated the procedure well. There were no immediate postprocedure complications. IMPRESSION: 1. Small hiatal hernia. 2. Few punctate nonbleeding arteriovenous malformations in the duodenal bulb. 3. Duodenal diverticulum. 4. No evidence of any old blood or active bleeding on this examination. RECOMMENDATIONS: Consider colonoscopy tomorrow. I will discuss this with the patient. The alternative would be to go ahead and advance her diet, monitor hemoglobin tomorrow morning, and if no further evidence of ongoing bleeding, follow up with Dr. Thurman in the outpatient setting for capsule endoscopy. Note, she had a colonoscopy with similar presentation last year, showing only diverticulosis and internal hemorrhoids. I would continue to hold the Xarelto if OK from cardiac perspective. Job ID: [id number] [facility]
[2020-08-06] MEDS ORDERED: GoLYTELY 4,000 ml Bottle PO SCH (12:00)
--- NOTE | 2020-08-06 18:38 | PDOC.HOSPP ---
- Subjective Encounter Date: 08/06/20 Encounter Time: 10:30 Subjective: Patient seen for follow-up regarding GI bleed. She denies any abdominal pain. - Objective Vital Signs & Weight: Vital Signs (12 hours) Temp Pulse Pulse Resp BP BP BP 08/06/20 16:21 98.2 F 68 18 128/60 08/06/20 14:10 66 128/60 08/06/20 11:20 97.4 F L 76 16 144/78 H 08/06/20 08:00 97.9 F 90 16 129/60 08/06/20 07:20 Pulse Ox 08/06/20 16:21 94 L 08/06/20 14:10 08/06/20 11:20 97 08/06/20 08:00 98 08/06/20 07:20 98 Weight Weight 159 lb 11.2 oz I&O: 08/05/20 08/06/20 08/07/20 06:59 06:59 06:59 Intake Total 680 3010 Output Total 570 1575 Balance 110 1435 Result Diagrams: 08/05/20 23:48 08/05/20 04:10 Additional Labs: I reviewed patient's labs and MAR EKG Reviewed by me: Yes (Electronic atrial paced rhythm on telemetry) Hospitalist ROS - Review of Systems Cardiovascular: denies: chest pain, palpitations, orthopnea, paroxysmal noc. dyspnea, edema, light headedness Gastrointestinal: denies: nausea, vomiting, abdominal pain, diarrhea, constipation, melena, hematochezia - Medication Medications: Active Medications Generic Name Dose Route Start Last Admin Trade Name Freq PRN Reason Stop Dose Admin Cholecalciferol 2,000 units 08/06/20 09:00 08/06/20 11:28 Cholecalciferol 1,000 Units (25 Mcg) Tab PO 2,000 units DAILY [place] Administration Cyanocobalamin 1,000 mcg 08/06/20 09:00 08/06/20 11:27 Cyanocobalamin (Vitamin B-12) 1,000 Mcg Tab PO 1,000 mcg DAILY [place] Administration Dronedarone 400 mg 08/05/20 08:00 08/06/20 16:25 Dronedarone Hcl 400 Mg Tab PO 400 mg BID-WM [place] Administration Iron/Minerals/Multivitamins 1 tab 08/06/20 09:00 08/06/20 11:26 Multivitamin W/ Minerals 1 Tab PO 1 tab DAILY [place] Administration Levothyroxine Sodium 100 mcg 08/05/20 06:00 08/06/20 05:37 Levothyroxine Sodium 100 Mcg Tab PO 100 mcg 0600 [place] Administration Magnesium Oxide 250 mg 08/06/20 09:00 08/06/20 11:26 Magnesium Oxide 250 Mg Tab PO 250 mg DAILY [place] Administration Metoprolol Succinate 50 mg 08/05/20 09:00 08/06/20 11:26 Metoprolol Succinate Xl 50 Mg Tab PO 50 mg DAILY [place] Administration Pantoprazole Sodium 40 mg 08/04/20 21:00 08/06/20 11:28 Pantoprazole 40 Mg Vial IVP 40 mg BID [place] Administration - Exam Eye: anicteric sclera ENT: moist mucosa Neck: supple Heart: irregular Respiratory: CTAB Gastrointestinal: soft, non-tender Skin: no rashes Psychiatric: normal affect, normal behavior Hosp A/P - Plan -Assessment (1) GI bleed Code(s): K92.2 - GASTROINTESTINAL HEMORRHAGE, UNSPECIFIED Status: Acute (2) Symptomatic anemia Code(s): D64.9 - ANEMIA, UNSPECIFIED Status: Acute (3) Atrial fibrillation Code(s): I48.91 - UNSPECIFIED ATRIAL FIBRILLATION Status: Chronic (4) Hypothyroidism Code(s): E03.9 - HYPOTHYROIDISM, UNSPECIFIED Status: Chronic (5) HTN (hypertension) Code(s): I10 - ESSENTIAL (PRIMARY) HYPERTENSION Status: Chronic - Plan Hemoglobin stable, check a.m. labs. Hemodynamically stable. Status post EGD today. Patient to go for colonoscopy tomorrow. Aspirin and anticoagulation on hold. Continue PPI. Patient needs nonemergent MRI as follow-up for incidental finding of pancreatic lesion on CT scan of abdomen and pelvis. Patient is on metoprolol and Multitak for atrial fibrillation. Patient is on Synthroid. SCDs for DVT prophylaxis. No pharmacological DVT prophylaxis.
[2020-08-07 04:58] LABS: Anion Gap 15 mmol/L (10-20); BUN (Urea Nitrogen) 6 mg/dL (9.8-20.1); Calc. Creatinine Clearance 79 mL/min (70-130); Carbon Dioxide 22 mmol/L (23-31); Chloride 107 mmol/L (98-107); Glucose 91 mg/dL (83-110); Potassium 3.8 mmol/L (3.5-5.1); Sodium 140 mmol/L (136-145)
[2020-08-07 05:16] LABS: Band 2 % (5-11); Eosinophils 3 % (0-10); Hemoglobin 10.3 g/dL (12.0-16.0); Lymphocytes 40 % (21-51); MDiff Complete? YES; Mean Corpuscular HGB CONC 34.3 g/dL (32.0-36.0); Mean Corpuscular Hemoglobin 32.2 pg (27.0-31.0); Mean Corpuscular Volume 93.8 fL (78.0-98.0); Mean Platelet Volume 6.8 fL (7.4-10.4); Monocytes 10 % (0-10); Neutrophil 45 % (42-75); Platelet Count 330 thou/uL (130-400); RBC Distribution Width 13.8 % (11.5-14.5); Red Blood Cell (RBC) Count 3.21 mill/uL (4.20-5.40); White Blood Cell (WBC) Count 6.9 thou/uL (4.8-10.8)
[2020-08-07] MEDS: Levothyroxine Sodium 100 MCG TAB PO SCH (05:42)
[2020-08-07] MEDS ORDERED: Promethazine HCl 25 MG/ML VIAL IM PRN (07:57)
[2020-08-07] MEDS ORDERED: Ondansetron HCl/PF 4 MG/2 ML Vial IVP PRN (07:57)
[2020-08-07] MEDS ORDERED: Promethazine HCl 25 MG/ML VIAL SLOW IVP PRN (07:57)
[2020-08-07] MEDS ORDERED: Lidocaine 1% PF 5 ML VIAL ONE (09:19)
[2020-08-07] MEDS ORDERED: PROPOFOL 200 MG/20 ML VIAL ONE (09:19)
[2020-08-07] MEDS: Cholecalciferol 1,000 UNITS (25 MCG) TAB PO SCH (09:22)
[2020-08-07] MEDS: Dronedarone HCl 400 MG TAB PO SCH ×2 (09:22→16:37)
[2020-08-07] MEDS: Pantoprazole 40 MG VIAL IVP SCH (09:23)
[2020-08-07] MEDS: Cyanocobalamin (Vitamin B-12) 1,000 MCG TAB PO SCH (09:23)
[2020-08-07] MEDS: Magnesium Oxide 250 MG TAB PO SCH (09:23)
[2020-08-07] MEDS: Multivitamin W/ Minerals 1 TAB PO SCH (09:24)
--- NOTE | 2020-08-07 09:43 | OP ---
DATE OF PROCEDURE: 08/07/2020 PREOPERATIVE DIAGNOSES: Melena, anemia due to blood loss, negative esophagogastroduodenoscopy. POSTOPERATIVE DIAGNOSES: Sigmoid diverticular disease. Otherwise, normal esophagogastroduodenoscopy and colonoscopy. OPERATIVE PROCEDURE: Video colonoscopy. DESCRIPTION OF PROCEDURE: The patient was placed on left lateral position and was given sedation by Anesthesia Department. A rectal exam was done before the scope was advanced into the rectum. No lesions felt on rectal exam. A Pentax video colonoscope was introduced into the rectum and advanced all the way into the cecum. The prep was very good. The mucosa appears normal throughout the colon with normal vascular pattern. The appendiceal orifice, ileocecal valve, and cecum well seen. No pathology seen. The terminal ileum entered without difficulty and the ileum was examined 5 or 10 cm. It was normal. Withdrawal of scope from the ileum into ascending colon, hepatic flexure, transverse colon, splenic flexure, descending colon, no lesion seen. The sigmoid colon showed scattered diverticula. Retroflexion of scope in the rectum showed no pathology. OVERALL IMPRESSION: Negative colonoscopy except for mild diverticula. The patient most likely has bleeding from small bowel. RECOMMENDATIONS: 1. Diet as tolerated. 2. From GI standpoint, she can be discharged home. She will go back to see Dr. Akash Thurman and have a capsule endoscopy as an outpatient in his office. Job ID: [id number]
[2020-08-07] MEDS: PRASTERONE 50 MG PO SCH ×2 (14:32→14:33)
[2020-08-07] MEDS: KRILL OIL 350 MG PO SCH ×2 (14:33→14:34)
[2020-08-07 15:47] VITALS: BP 147/63; TEMP 98.3
--- NOTE | 2020-08-07 16:02 | PDOC.DS.DS ---
Provider - Provider Date of Admission: 08/04/20 18:51 Date of Discharge: 08/07/20 Admitting Provider: Sudheer Villar Consultations: Gastroentrology (Dr. Crump) Primary Care Physician: Celso Romero MD Course - Hospital Course Hospital Course: Discharge diagnosis: 1. GI bleed 2. Anemia of acute blood loss 3. Hyponatremia 4. COVID-19 PCR test negative Hospital course: Patient is a pleasant 75-year-old lady who was admitted to the hospital on August 04, 2020 for acute GI bleed. Rivaroxaban and aspirin were held. She received 2 units packed RBC transfusion. She was seen by gastroenterology service. On August 06 she underwent EGD. 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 On August 07 she underwent colonoscopy. She had sigmoid diverticular disease, ot herwise normal colonoscopy. She has been cleared for discharge by gastroenterology service. Gastro enterology service also recommended resuming rivaroxaban and aspirin and following up with her part time receptionist for possible video capsule endoscopy. She is being discharged home in a stable condition. She has been advised to discontinue anticoagulation if she develops black stools or bright red blood or old blood in the stool. Many thanks for allowing me to participate in your patient's care. Please feel free to contact me with any questions or concerns. Discharge destination: Home Total amount of time spent coordinating this discharge: 25 minutes Resuscitation Status: 08/04/20 19:31 Resuscitation Status Routine Co-Sign Provider: Resuscitation Status: FULL: Full Resuscitation Discussed with: patient - Labs Lab Results: 08/07/20 03:45 08/07/20 03:45 Abnormal Lab Results - Last 48 hrs 08/05/20 17:36: Hgb 10.8 L, Hct 31.0 L 08/05/20 23:48: Hgb 10.3 L, Hct 30.4 L 08/07/20 03:45: Carbon Dioxide 22 L, BUN 6 L 08/07/20 03:45: RBC 3.21 L, Hgb 10.3 L, Hct 30.2 L, MCH 32.2 H, MPV 6.8 L, Band Neuts % (Manual) 2 L Microbiology - Entire Visit 08/05/20 10:22 Stool Stool Occult Blood (ARTHUR) - Final - Physical Exam Vitals: Vital Signs (12 hours) Temp Pulse Resp BP Pulse Ox 08/07/20 15:34 98.3 F 60 16 147/63 H 95 08/07/20 11:46 97.6 F 60 16 113/56 L 95 08/07/20 07:19 97.7 F 69 18 135/64 95 08/07/20 04:00 97.6 F 66 16 120/54 L 94 L Weight Weight 161 lb 6.4 oz Physical Exam: The patient was seen and examined on the day of discharge. Patient denies chest pain or shortness of breath. Vital signs are stable. S1 and S2 are heard. Lungs are clear to auscultation bilaterally. Plan - Discharge Medications Home Medications: Medication Instructions Recorded Confirmed Type Cholecalciferol (Vitamin D3) 2,000 unit PO DAILY 10/01/15 08/05/20 History [Vitamin D] Cyanocobalamin (Vitamin B-12) 1,000 mcg SL DAILY 10/01/15 08/05/20 History [Vitamin B-12] Krill Oil 350 mg PO DAILY 10/01/15 08/05/20 History Multivitamin [Multi-Vitamin Daily] 1 tablet PO DAILY 10/01/15 08/05/20 History Levothyroxine Sodium [Synthroid] 100 mcg PO DAILY 03/13/18 08/05/20 History Loratadine 10 mg PO DAILY PRN 03/13/18 08/05/20 History Metoprolol Succinate [Toprol XL] 50 mg PO DAILY #30 tab 03/15/18 08/05/20 Rx Aspirin Chewable [Aspirin Chewable 81 mg PO DAILY #0 tab 07/09/19 08/05/20 Rx Tablet] Rivaroxaban [Xarelto] 20 mg PO HS #0 07/09/19 08/05/20 Rx Dronedarone HCl [Multaq] 400 mg PO BID-WM 07/10/19 08/05/20 History Magnesium 250 mg PO DAILY 08/05/20 08/05/20 History Prasterone (DHEA) [DHEA] 50 mg PO DAILY 08/05/20 08/05/20 History Allergies: Penicillins Allergy (Severe, Verified 08/04/20 20:01) Anaphylaxis propoxyphene napsylate [From Darvocet-N] Allergy (Unknown, Verified 08/04/20 20:01) Rash perp pt/ED PT SUMMARY SHEET - Discharge Instructions Activity:: Activity as Tolerated Nourishment:: Heart Healthy Diet - Follow up Plan Referrals: Celso Romero MD [Primary Care Provider] - 3 Days Disposition: HOME Quality - Care Measures CORE MEASURES:: N/A
== END 2020-08-07 18:45 | disposition home or self-care (01) | DRG 378 ==
LOC: ERS 15:25 → 2NO 18:51
PROVIDERS: ADMIT Internal Medicine; ATTEND Internal Medicine
PROC: 30233N0 Transfusion of Autologous Red Blood Cells into Peripheral Vein, Percutaneous Approach (ICD-10-PCS; 2020-08-05)
PROC: 0DJ08ZZ Inspection of Upper Intestinal Tract, Via Natural or Artificial Opening Endoscopic (ICD-10-PCS; principal; 2020-08-06)
PROC: 0DJD8ZZ Inspection of Lower Intestinal Tract, Via Natural or Artificial Opening Endoscopic (ICD-10-PCS; 2020-08-07)
DX: K92.1 Melena (principal); D62 Acute posthemorrhagic anemia; I48.20 Chronic atrial fibrillation, unspecified; E87.1 Hypo-osmolality and hyponatremia; I10 Essential (primary) hypertension; E03.9 Hypothyroidism, unspecified; Z20.828 Contact with and (suspected) exposure to other viral communicable diseases; K44.9 Diaphragmatic hernia without obstruction or gangrene; K86.9 Disease of pancreas, unspecified; Z96.642 Presence of left artificial hip joint; K57.10 Diverticulosis of small intestine without perforation or abscess without bleeding; K31.819 Angiodysplasia of stomach and duodenum without bleeding; Z79.01 Long term (current) use of anticoagulants; Z95.0 Presence of cardiac pacemaker; Z85.3 Personal history of malignant neoplasm of breast; Z79.890 Hormone replacement therapy; Z79.899 Other long term (current) drug therapy; Z88.0 Allergy status to penicillin; Z88.8 Allergy status to other drugs, medicaments and biological substances; Z79.82 Long term (current) use of aspirin
CPT/HCPCS: 36415; 36430; 74177; 80048; 80053; 81001; 82274; 82607; 82728; 82746; 83540; 83550; 84443; 85025; 85046; 85610; 85730; 86850; 86900; 86901; 87635; C9113; J2704; P9016; Q9967; U0003

== ENCOUNTER 2023-09-14 14:02 | Outpatient (CLI) | payer MEDICARE, BC | END 2023-09-14 14:03 | disposition home or self-care (01) | LOC: BICMAMMO 14:02 | PROVIDERS: ATTEND Internal Medicine | DX: M85.851 Other specified disorders of bone density and structure, right thigh (principal) | CPT/HCPCS: 77080 ==

== ENCOUNTER 2024-02-07 06:42 | Day surgery (SDC) | payer MEDICARE, BC ==
[2024-02-06 13:51] VITALS: BMI 28.3
[2024-02-07] MEDS ORDERED: EPINEPHrine 0.3 MG in Ophthalmic Irrigation Solution 500 ML IRR SCH (06:45)
[2024-02-07] MEDS ORDERED: PROPOFOL 20 ML ONE (08:31)
[2024-02-07] MEDS ORDERED: Midazolam HCl 2 mg/2 ml Vial ONE (08:31)
[2024-02-07] MEDS ORDERED: fentaNYL 50 mcg/mL 1 mL Vial ONE (08:50)
[2024-02-07] MEDS ORDERED: Triamcinolone 40 MG/ML VIAL ONE (08:54)
[2024-02-07] MEDS ORDERED: Lidocaine 1% PF 5 ML VIAL ONE (08:54)
[2024-02-07] MEDS ORDERED: Bupivacaine 0.75% 10 ML VIAL ONE (08:54)
[2024-02-07] MEDS ORDERED: Maxitrol 0.1% Opth Oint 3.5 GM TUBE ONE (08:54)
[2024-02-07] MEDS ORDERED: Lidocaine 4% PF 5 ML AMP ONE (08:54)
[2024-02-07] MEDS ORDERED: CEFAZOLIN 1 GM VIAL ONE (08:54)
== END 2024-02-07 10:20 | disposition home or self-care (01) ==
LOC: SDC 06:42
PROVIDERS: ATTEND Ophthalmology Retina Specialist
PROC: 08953ZZ Drainage of Left Vitreous, Percutaneous Approach (ICD-10-PCS; principal; 2024-02-07)
DX: H43.12 Vitreous hemorrhage, left eye (principal); H59.022 Cataract (lens) fragments in eye following cataract surgery, left eye; Z88.0 Allergy status to penicillin; Z88.8 Allergy status to other drugs, medicaments and biological substances
CPT/HCPCS: 67040; 93005; J0171; J0690; J2250; J2704; J3010; J3301; J3490; 93010